=== PATIENT | female | born 1955 | race Two or more races ===

== ENCOUNTER 2020-03-02 07:53 | Outpatient (CLI) | payer BC | END 2020-03-02 23:59 | disposition home or self-care (01) | LOC: ROC 07:53 | PROVIDERS: ATTEND Radiology Radiation Oncology | DX: D32.0 Benign neoplasm of cerebral meninges (principal) | CPT/HCPCS: 99214; G0463 ==

== ENCOUNTER → 2020-10-26 | Outpatient (CLI) | payer BC, MEDICARE | END | disposition home or self-care (01) | LOC: ROC 07:16 | PROVIDERS: ATTEND Radiology Radiation Oncology | DX: Z08 Encounter for follow-up examination after completed treatment for malignant neoplasm (principal); D32.0 Benign neoplasm of cerebral meninges | CPT/HCPCS: G0463 ==

== ENCOUNTER 2020-11-15 01:49 | Inpatient (IN) | payer BC, MEDICARE ==
[~2020-11-15] VITALS: Ht 152.4 cm; Wt 73.5 kg
--- NOTE | 2020-11-15 01:59 | NUR ---
Patient BIBA for poss seizure. Per patient's , he woke up to patient having abnormally loud breathing and grinding her teeth. He then witnessed seizure activity for an unknown amount of time. Patient does not have a hx of seizures. Upon EMS arrival, patient appeared postictal and was AAOx1, GCS 9. Per , patient has a "device in her head that is to be removed," but has never had any problems. Currently, patient is alert to person and place, GCS 15. She denies pain. Patient in NAD. Respirations even and unlabored.
--- NOTE | 2020-11-15 02:10 | NUR ---
Seizure precations in place.
[2020-11-15] MEDS ORDERED: SODIUM CHLORIDE FLUSH 10ML SYR IVF ONE (02:30)
[2020-11-15] MEDS ORDERED: SODIUM CHLORIDE 0.9% 1,000ML IVBOLUS ONE (02:30)
[2020-11-15 02:38] LABS: BASOPHILS % (AUTO) 1 % (0-1); EOSINOPHILS % (AUTO) 2 % (1-7); LYMPHOCYTES % (AUTO) 24 % (22-44); MD NO; MEAN CORPUSCULAR HEMOGLOBIN 32.4 pg (27.0-34.8); MEAN CORPUSCULAR HGB CONC 34.4 g/dL (32.4-35.8); MEAN PLATELET VOLUME 8.7 fL (7.4-10.4); MONOCYTES % (AUTO) 11 % (2-9); NEUTROPHILS % (AUTO) 63 % (42-75); PLATELET COUNT 172 x10^3/uL (130-400); RED CELL DISTRIBUTION WIDTH 13.2 % (9.6-15.2)
[2020-11-15 02:43] LABS: ALANINE AMINOTRANSFERASE 80 U/L (12-78); ALBUMIN 3.8 g/dL (3.4-5.0); ANION GAP 5 mmol/L (5-15); CALCIUM 9.4 mg/dL (8.5-10.1); CHLORIDE 109 mmol/L (98-107); CREATININE 0.88 mg/dL (0.55-1.02)
--- NOTE | 2020-11-15 02:43 | NUR ---
Patient to CT.
[2020-11-15 02:45] LABS: ALKALINE PHOSPHATASE 121 U/L (45-117); BILIRUBIN,TOTAL 0.6 mg/dL (0.2-1.0)
[2020-11-15] MEDS ORDERED: DEXAMETHASONE 4 MG/ML, 5ML ONE (03:22)
[2020-11-15] MEDS ORDERED: LEVETIRACETAM 1,000 MG in SODIUM CHLORIDE 0.9% 100 ML IV ONE (03:30)
[2020-11-15] MEDS ORDERED: DEXAMETHASONE 4 MG/ML, 1ML IVPush ONE (03:30)
[2020-11-15] MEDS ORDERED: ACETAMINOPHEN 325 MG TABLET ONE (03:54)
[2020-11-15] MEDS ORDERED: ACETAMINOPHEN 325 MG TABLET PO ONE (04:00)
[2020-11-15] MEDS ORDERED: ENALAPRILAT 1.25 MG/ML, 2ML IVPush PRN (04:30)
[2020-11-15] MEDS ORDERED: IBUPROFEN 600 MG TABLET PO PRN (04:30)
[2020-11-15] MEDS ORDERED: ONDANSETRON ODT 4 MG PO PRN (04:30)
[2020-11-15] MEDS ORDERED: POLYETHYLENE GLYCOL 17 GM PACKET PO PRN (04:30)
[2020-11-15] MEDS ORDERED: MELATONIN 5 MG TABLET PO PRN (04:30)
[2020-11-15] MEDS ORDERED: DOCUSATE 100 MG CAPSULE PO PRN (04:30)
--- NOTE | 2020-11-15 04:31 | NUR ---
PATIENT PLACED ON 2L VIA NC DUE TO PATIENT REPEATEDLY BEING FOUND AT 76-79% ON RA WHILE SHE IS RESTING WITH EYES CLOSED ON [place]. PATIENT NOW RESTING AT 95%. PATIENT APNEIC/SNORING DURING SLEEP
--- NOTE | 2020-11-15 04:50 | NUR ---
Report given to TIGRE Martinez. Patient to be transferred to room 427-2.
[2020-11-15 05:02] VITALS: BP 123/71
[2020-11-15 05:27] VITALS: BP 123/71
[2020-11-15] MEDS: ENOXAPARIN 40 MG/0.4 ML SQ SCH (06:17)
[2020-11-15 08:04] VITALS: BP 111/71
[2020-11-15] MEDS: LEVETIRACETAM 500 MG TABLET PO SCH ×2 (10:23→20:21)
[2020-11-15 12:59] VITALS: BP 113/73
[2020-11-15 13:54] LABS: MICROSCOPIC NOT IND
[2020-11-15] MEDS: ACETAMINOPHEN 325 MG TABLET PO PRN (14:23)
[2020-11-15] MEDS ORDERED: LORazepam 2 MG/ML, 1ML IVPush PRN (15:00)
[2020-11-15 19:26] VITALS: BP 96/58
[2020-11-15 22:41] LABS: AMPHETAMINE SCREEN, URINE Negative (Negative); BARBITURATE SCREEN, URINE Negative (Negative); BENZODIAZEPINE SCREEN, URINE Negative (Negative); CANNABINOID SCREEN, URINE Negative (Negative); COCAINE SCREEN, URINE Negative (Negative); METHADONE SCREEN, URINE Negative (Negative); OPIATE SCREEN, URINE Negative (Negative)
[2020-11-16 01:39] VITALS: BP 102/61
[2020-11-16] MEDS: ENOXAPARIN 40 MG/0.4 ML SQ SCH (04:16)
[2020-11-16] MEDS ORDERED: LATA2.5D4 EACHEYE (05:20)
[2020-11-16 05:37] LABS: BASOPHILS % (AUTO) 0 % (0-1); EOSINOPHILS % (AUTO) 0 % (1-7); LYMPHOCYTES % (AUTO) 20 % (22-44); MD NO; MEAN CORPUSCULAR HGB CONC 34.1 g/dL (32.4-35.8); MEAN PLATELET VOLUME 8.9 fL (7.4-10.4); MONOCYTES % (AUTO) 10 % (2-9); NEUTROPHILS % (AUTO) 70 % (42-75); PLATELET COUNT 164 x10^3/uL (130-400); RED BLOOD COUNT 4.17 x10^6/uL (3.82-5.3); RED CELL DISTRIBUTION WIDTH 13.2 % (9.6-15.2)
[2020-11-16 05:55] LABS: CHLORIDE 116 mmol/L (98-107)
[2020-11-16 05:59] LABS: ANION GAP 5 mmol/L (5-15); CALCIUM 9.5 mg/dL (8.5-10.1); CREATININE 0.72 mg/dL (0.55-1.02)
[2020-11-16 07:30] VITALS: BP 99/63
[2020-11-16] MEDS: LEVETIRACETAM 500 MG TABLET PO SCH (08:57)
[2020-11-16] MEDS ORDERED: ESCITALOPRAM 10MG TABLET PO SCH (09:00)
[2020-11-16] MEDS ORDERED: LEVE500T53 PO (10:11)
[2020-11-16] MEDS: ACETAMINOPHEN 325 MG TABLET PO PRN (12:31)
[2020-11-16 15:42] VITALS: BP 137/79
[2020-11-16] MEDS ORDERED: PREGABALIN 150 MG CAPSULE PO SCH (21:00)
== END 2020-11-16 17:36 | disposition home or self-care (01) | DRG 100 ==
LOC: ED 02:02 → EDIP 04:24 → 4WST 04:56
PROVIDERS: ADMIT Student in an Organized Health Care Education/Training Program; ATTEND Student in an Organized Health Care Education/Training Program
DX: R56.9 Unspecified convulsions (principal); G93.6 Cerebral edema; E78.00 Pure hypercholesterolemia, unspecified; E78.5 Hyperlipidemia, unspecified; E66.9 Obesity, unspecified; F32.9 Major depressive disorder, single episode, unspecified; R74.01 Elevation of levels of liver transaminase levels; Z86.011 Personal history of benign neoplasm of the brain; Z92.3 Personal history of irradiation; Z79.899 Other long term (current) drug therapy; Z68.31 Body mass index [BMI] 31.0-31.9, adult
CPT/HCPCS: 36415; 70450; 70553; 71045; 80048; 80053; 80074; 80307; 80320; 81003; 83735; 85025; 93005; 96374; 96375; 99285; G0378; J1100; J1650; J1953; G0480; J7030

== ENCOUNTER 2020-12-06 21:37 | Emergency (ER) | payer BC, MEDICARE ==
[~2020-12-06] VITALS: Ht 152.4 cm; Wt 70.0 kg
[~2020-12-06 21:37] MED LIST: LATA2.5D4 EACHEYE; LEVE500T53 PO
--- NOTE | 2020-12-06 21:53 | NUR ---
Airway patent, small laceration on tongue. Pt alert, can state name but cannot state her birthday, cannot state the date or where she is.
--- NOTE | 2020-12-06 21:54 | NUR ---
Pt arrives via [facility] from home. Had witnessed seizure that lasted 4-5 min., described as tonic-clonic activity. This is the second seizure pt has ever had. First seizure was three weeks ago and pt was put on kepra, did not take kepra today. Pt also has hx of a brain tumor and is supposed to have surgery for it next week. Hooked up to monitor, EKG done, IV in place, seizure pads in place. Pt fell onto kitchen floor when she had seizure and has bump on right side of her head. Ice applied. Will CT scan head.
--- NOTE | 2020-12-06 21:58 | NUR ---
Requested caren reynoso from pharmacy.
[2020-12-06] MEDS ORDERED: LEVETIRACETAM 1,000 MG in SODIUM CHLORIDE 0.9% 100 ML IV ONE (22:00)
[2020-12-06] MEDS ORDERED: SODIUM CHLORIDE FLUSH 10ML SYR IVF ONE (22:00)
--- NOTE | 2020-12-06 22:03 | NUR ---
Pt to CT
--- NOTE | 2020-12-06 22:28 | NUR ---
Chelo infusing per [facility]MAR. Lab at bedside. Pt's at bedside. Seizure pads in place, hooked up to monitor.
[2020-12-06 22:36] LABS: BASOPHILS % (AUTO) 1 % (0-1); EOSINOPHILS % (AUTO) 2 % (1-7); LYMPHOCYTES % (AUTO) 19 % (22-44); MEAN CORPUSCULAR HEMOGLOBIN 32.4 pg (27.0-34.8); MEAN CORPUSCULAR HGB CONC 34.3 g/dL (32.4-35.8); MEAN PLATELET VOLUME 9.1 fL (7.4-10.4); MONOCYTES % (AUTO) 10 % (2-9); NEUTROPHILS % (AUTO) 68 % (42-75); PLATELET COUNT 160 x10^3/uL (130-400); RED BLOOD COUNT 4.25 x10^6/uL (3.82-5.3); RED CELL DISTRIBUTION WIDTH 13.2 % (9.6-15.2)
[2020-12-06 22:37] LABS: MD NO
[2020-12-06 22:42] LABS: ALBUMIN 3.5 g/dL (3.4-5.0); ANION GAP 4 mmol/L (5-15); CALCIUM 8.9 mg/dL (8.5-10.1); CHLORIDE 107 mmol/L (98-107); CREATININE 0.71 mg/dL (0.55-1.02)
--- NOTE | 2020-12-06 22:44 | NUR ---
Chasidyra infusion complete.
--- NOTE | 2020-12-06 22:57 | NUR ---
Covering primary nurse for break, pt resting on monitor, seizure pads in place, ice on forehead. VSS. Friend at bedside. Will continue to monitor.
--- NOTE | 2020-12-06 23:21 | NUR ---
Pt requested to walk to br with , pt with unsteady wobbly gait. Brought in BSC, with pt.
--- NOTE | 2020-12-06 23:28 | NUR ---
Pt placed back in [facility] using BSC. Back on monitor.
--- NOTE | 2020-12-06 23:51 | NUR ---
Consulting neurology and continuing to monitor pt. Pt still oriented only to self and situation. Does not know where she is or what the date is. at bedside.
[2020-12-07 00:25] VITALS: BP 109/73
--- NOTE | 2020-12-07 00:26 | NUR ---
IV removed, catheter intact, hemostasis achieved, dressing applied. Pt and pt's agree with and understand discharge plan and instructions.
[2020-12-09] MEDS ORDERED: ESCI20TA8 PO (09:33)
[2020-12-09] MEDS ORDERED: GINK120T3 PO (09:33)
[2020-12-09] MEDS ORDERED: B CO1CAP5 PO (09:33)
[2020-12-09] MEDS ORDERED: ACET-1600 PO (09:33)
[2020-12-09] MEDS ORDERED: PREG150C PO (09:33)
[2020-12-09] MEDS ORDERED: ROSU5TAB PO (09:33)
[2020-12-09] MEDS ORDERED: CHOL10003 PO (09:33)
[2020-12-09] MEDS ORDERED: PROP15DR EACHEYE (09:33)
[2020-12-09] MEDS ORDERED: OMEG1CAP39 PO (09:33)
[2020-12-09] MEDS ORDERED: MULT-717 PO (09:33)
[2020-12-09] MEDS ORDERED: LEVE750T8 PO (09:33)
== END 2020-12-07 00:32 | disposition home or self-care (01) ==
LOC: ED 22:07
DX: I67.89 Other cerebrovascular disease (principal); R56.9 Unspecified convulsions; R51.9 Headache, unspecified; E78.00 Pure hypercholesterolemia, unspecified
CPT/HCPCS: 36415; 70450; 80048; 82040; 85025; 93005; 96365; 99285; J1953

== ENCOUNTER → 2020-12-09 | Outpatient (CLI) | payer BC, MEDICARE ==
[~2020-12-09] MED LIST changes: +ACET-1600 PO; +B CO1CAP5 PO; +CHOL10003 PO; +ESCI20TA8 PO; +GINK120T3 PO; +LEVE750T8 PO; +MULT-717 PO; +OMEG1CAP39 PO; +PREG150C PO; +PROP15DR EACHEYE; +ROSU5TAB PO
== END | disposition home or self-care (01) ==
LOC: STAR 08:36
PROVIDERS: ATTEND Neurological Surgery
DX: Z20.822 Contact with and (suspected) exposure to COVID-19 (principal); D32.0 Benign neoplasm of cerebral meninges
CPT/HCPCS: U0003

== ENCOUNTER 2020-12-15 05:29 | Inpatient (IN) | payer BC, MEDICARE ==
[~2020-12-15] VITALS: Ht 152.4 cm; Wt 65.5 kg
[2020-12-15] MEDS ORDERED: CHLORHEXIDINE 15 ML UDC MM ONE (06:30)
[2020-12-15] MEDS ORDERED: LACTATED RINGERS 1,000 ML IV SCH (06:30)
[2020-12-15] MEDS ORDERED: LIDOCAINE-MPF 1%, 2ML INFIL ONE (06:30)
[2020-12-15] MEDS ORDERED: BUPIVACAINE/PF 0.5% ONE (06:42)
[2020-12-15] MEDS ORDERED: BACITRACIN 50,000 UNIT ONE (06:43)
[2020-12-15] MEDS ORDERED: BACITRACIN OINT 500U/GM, 15 GM ONE (06:43)
[2020-12-15] MEDS ORDERED: MANNITOL PMX 20% 500 ML ONE (06:43)
[2020-12-15] MEDS ORDERED: EPINEPHRINE 1 MG/ML, 1ML ONE (06:43)
[2020-12-15] MEDS ORDERED: PROPOFOL 10 MG/ML, 20ML ONE (07:17)
[2020-12-15] MEDS ORDERED: MIDAZOLAM 1 MG/ML, 2ML ONE ×2 (07:17→12:48)
[2020-12-15] MEDS ORDERED: FENTANYL PF 250 MCG/5ML ONE (07:17)
[2020-12-15] MEDS ORDERED: ROCURONIUM 10MG/ML,5ML ONE (07:18)
[2020-12-15] MEDS ORDERED: DEXAMETHASONE 4 MG/ML, 1ML ONE (07:18)
[2020-12-15] MEDS ORDERED: ONDANSETRON 2MG/ML, 2ML ONE (07:18)
[2020-12-15] MEDS ORDERED: CEFAZOLIN 1,000 MG ONE (07:18)
[2020-12-15] MEDS ORDERED: LIDOCAINE-MPF 2% ,5ML ONE (07:18)
[2020-12-15] MEDS ORDERED: MEPERIDINE/PF 25MG/0.5ML IVPush PRN (08:00)
[2020-12-15] MEDS ORDERED: LABETALOL 5MG/ML, 20ML IV PRN ×2 (08:00→13:00)
[2020-12-15] MEDS ORDERED: ONDANSETRON 2MG/ML, 2ML IVPush PRN (08:00)
[2020-12-15] MEDS ORDERED: DIPHENHYDRAMINE 50 MG/ML, 1ML IVPush PRN (08:00)
[2020-12-15] MEDS ORDERED: FENTANYL PF 100 MCG/2ML IV PRN (08:00)
[2020-12-15] MEDS ORDERED: DIAZEPAM 5 MG/ML, 2ML IVPush PRN (08:00)
[2020-12-15] MEDS ORDERED: OXYcodone 5 MG/5 ML ORAL.SOL UDC PO PRN (08:00)
[2020-12-15] MEDS ORDERED: hydrALAzine 20 MG/ML, 1ML IV PRN (08:00)
[2020-12-15] MEDS ORDERED: HYDROmorphone 1 MG/ML, 1ML INJ IVPush PRN (08:00)
[2020-12-15] MEDS ORDERED: PROMETHAZINE 25 MG/ML, 1ML IVPush PRN (08:00)
[2020-12-15] MEDS ORDERED: ACETAMINOPHEN 325 MG TABLET PO PRN (08:00)
[2020-12-15] MEDS ORDERED: LEVETIRACETAM 1,000 MG in SODIUM CHLORIDE 0.9% 100 ML IV ONE (08:30)
[2020-12-15] MEDS ORDERED: THROMBIN 20,000 UNIT VIAL TP ONE (09:04)
[2020-12-15] MEDS ORDERED: morphine SULFATE 10 MG/ML, 1ML IV PRN (13:00)
[2020-12-15] MEDS ORDERED: ONDANSETRON 2MG/ML, 2ML IV PRN (13:00)
[2020-12-15] MEDS ORDERED: BISACODYL 10 MG SUPP PR PRN (13:00)
[2020-12-15] MEDS ORDERED: PROCHLORPERAZINE 5 MG/ML, 2ML IV PRN (13:30)
[2020-12-15] MEDS ORDERED: METOCLOPRAMIDE 5 MG/ML, 2ML IVPush PRN (13:30)
[2020-12-15] MEDS ORDERED: FENTANYL PF 100 MCG/2ML ONE (14:15)
[2020-12-15] MEDS: FENTANYL PF 100 MCG/2ML IV PRN ×2 (14:35→15:15)
[2020-12-15] MEDS ORDERED: DEXAMETHASONE 4 MG TABLET PO SCH (15:30)
[2020-12-15] MEDS: ACETAMINOPHEN 650 MG/20.3 ML UDC PO SCH ×2 (15:56→19:46)
[2020-12-15] MEDS: CEFAZOLIN PMX 1GM/50ML 50 ML IVPB SCH (15:56)
[2020-12-15] MEDS: DEXAMETHASONE 4 MG/ML, 1ML IVPush SCH (18:06)
[2020-12-15] MEDS ORDERED: LEVETIRACETAM 500 MG TABLET PO SCH (21:00)
[2020-12-15] MEDS: LEVETIRACETAM 1,000 MG in SODIUM CHLORIDE 0.9% 100 ML IV SCH (21:18)
[2020-12-16] MEDS: ACETAMINOPHEN 650 MG/20.3 ML UDC PO SCH ×4 (00:11→21:27)
[2020-12-16] MEDS: CEFAZOLIN PMX 1GM/50ML 50 ML IVPB SCH (00:11)
[2020-12-16] MEDS: DEXAMETHASONE 4 MG/ML, 1ML IVPush SCH ×3 (00:11→17:18)
[2020-12-16 04:33] LABS: BASOPHILS % (AUTO) 0 % (0-1); CALCIUM 7.8 mg/dL (8.5-10.1); CHLORIDE 113 mmol/L (98-107); CREATININE 0.79 mg/dL (0.55-1.02); EOSINOPHILS % (AUTO) 0 % (1-7); LYMPHOCYTES % (AUTO) 7 % (22-44); MEAN CORPUSCULAR HGB CONC 33.5 g/dL (32.4-35.8); MEAN PLATELET VOLUME 8.8 fL (7.4-10.4); MONOCYTES % (AUTO) 7 % (2-9); NEUTROPHILS % (AUTO) 86 % (42-75); PLATELET COUNT 154 x10^3/uL (130-400); RED BLOOD COUNT 3.78 x10^6/uL (3.82-5.3); RED CELL DISTRIBUTION WIDTH 13.5 % (9.6-15.2)
[2020-12-16 04:40] LABS: ANION GAP 4 mmol/L (5-15)
[2020-12-16 05:43] LABS: MD SCAN
[2020-12-16] MEDS: SENNA/DOCUSATE TABLET PO SCH (09:00)
[2020-12-16] MEDS: LEVETIRACETAM 1,000 MG in SODIUM CHLORIDE 0.9% 100 ML IV SCH (10:44)
[2020-12-16] MEDS ORDERED: SODIUM CHLORIDE 0.9% IV ONE (16:30)
[2020-12-16] MEDS ORDERED: FOSPHENYTOIN IV ONE (16:30)
[2020-12-16] MEDS: LEVETIRACETAM 1,500 MG in SODIUM CHLORIDE 0.9% 100 ML IV SCH (17:48)
[2020-12-17] MEDS: DEXAMETHASONE 4 MG/ML, 1ML IVPush SCH ×3 (00:18→16:38)
[2020-12-17] MEDS: ACETAMINOPHEN 650 MG/20.3 ML UDC PO SCH ×2 (03:30→08:08)
[2020-12-17] MEDS: LEVETIRACETAM 1,500 MG in SODIUM CHLORIDE 0.9% 100 ML IV SCH ×2 (04:19→17:50)
[2020-12-17 04:58] LABS: BASOPHILS % (AUTO) 0 % (0-1); EOSINOPHILS % (AUTO) 0 % (1-7); LYMPHOCYTES % (AUTO) 7 % (22-44); MEAN PLATELET VOLUME 9.3 fL (7.4-10.4); MONOCYTES % (AUTO) 8 % (2-9); NEUTROPHILS % (AUTO) 85 % (42-75); PLATELET COUNT 143 x10^3/uL (130-400); RED BLOOD COUNT 3.82 x10^6/uL (3.82-5.3); RED CELL DISTRIBUTION WIDTH 13.6 % (9.6-15.2)
[2020-12-17 05:02] LABS: ANION GAP 1 mmol/L (5-15); CALCIUM 8.2 mg/dL (8.5-10.1); CHLORIDE 117 mmol/L (98-107)
[2020-12-17 05:05] LABS: MD NO
[2020-12-17] MEDS: SENNA/DOCUSATE TABLET PO SCH (08:08)
[2020-12-18] MEDS: DEXAMETHASONE 4 MG/ML, 1ML IVPush SCH ×3 (00:21→16:17)
[2020-12-18] MEDS: LEVETIRACETAM 1,500 MG in SODIUM CHLORIDE 0.9% 100 ML IV SCH ×2 (04:39→16:46)
[2020-12-18] MEDS: FENTANYL PF 100 MCG/2ML IV PRN ×2 (04:40→12:02)
[2020-12-18 06:18] LABS: BASOPHILS % (AUTO) 0 % (0-1); EOSINOPHILS % (AUTO) 0 % (1-7); LYMPHOCYTES % (AUTO) 9 % (22-44); MEAN CORPUSCULAR HGB CONC 33.8 g/dL (32.4-35.8); MEAN PLATELET VOLUME 9.4 fL (7.4-10.4); MONOCYTES % (AUTO) 6 % (2-9); NEUTROPHILS % (AUTO) 85 % (42-75); PLATELET COUNT 140 x10^3/uL (130-400); RED BLOOD COUNT 3.75 x10^6/uL (3.82-5.3); RED CELL DISTRIBUTION WIDTH 13.5 % (9.6-15.2)
[2020-12-18 06:23] LABS: MD NO
[2020-12-18 06:29] LABS: ANION GAP 4 mmol/L (5-15); CALCIUM 8.7 mg/dL (8.5-10.1); CHLORIDE 122 mmol/L (98-107)
[2020-12-18 06:30] LABS: CREATININE 0.71 mg/dL (0.55-1.02)
[2020-12-18] MEDS: SENNA/DOCUSATE TABLET PO SCH (12:53)
[2020-12-18] MEDS: ESCITALOPRAM 10MG TABLET PO SCH (12:53)
[2020-12-18] MEDS: OXYcodone 5 MG/5 ML ORAL.SOL UDC PO PRN (16:18)
[2020-12-18] MEDS: ATORVASTATIN 20 MG TABLET PO SCH (21:00)
[2020-12-18] MEDS: LATANOPROST OPHTH 0.005%, 2.5ML EACHEYE SCH (21:07)
[2020-12-19] MEDS: DEXAMETHASONE 4 MG/ML, 1ML IVPush SCH ×3 (00:15→17:03)
[2020-12-19] MEDS: FENTANYL PF 100 MCG/2ML IV PRN (04:06)
[2020-12-19 04:24] LABS: BASOPHILS % (AUTO) 0 % (0-1); EOSINOPHILS % (AUTO) 0 % (1-7); LYMPHOCYTES % (AUTO) 10 % (22-44); MD NO; MEAN CORPUSCULAR HEMOGLOBIN 31.9 pg (27.0-34.8); MEAN CORPUSCULAR HGB CONC 33.7 g/dL (32.4-35.8); MEAN PLATELET VOLUME 9.1 fL (7.4-10.4); MONOCYTES % (AUTO) 5 % (2-9); NEUTROPHILS % (AUTO) 85 % (42-75); PLATELET COUNT 140 x10^3/uL (130-400); RED BLOOD COUNT 3.97 x10^6/uL (3.82-5.3); RED CELL DISTRIBUTION WIDTH 13.6 % (9.6-15.2)
[2020-12-19] MEDS: LEVETIRACETAM 1,500 MG in SODIUM CHLORIDE 0.9% 100 ML IV SCH ×2 (04:32→17:03)
[2020-12-19 04:35] LABS: CALCIUM 8.6 mg/dL (8.5-10.1); CHLORIDE 129 mmol/L (98-107); CREATININE 0.86 mg/dL (0.55-1.02)
[2020-12-19 04:42] LABS: ANION GAP 4 mmol/L (5-15)
[2020-12-19] MEDS: ESCITALOPRAM 10MG TABLET PO SCH (09:00)
[2020-12-19] MEDS: SENNA/DOCUSATE TABLET PO SCH (09:00)
[2020-12-19] MEDS: OXYcodone 5 MG/5 ML ORAL.SOL UDC PO PRN (14:52)
[2020-12-19 16:17] LABS: ANION GAP 6 mmol/L (5-15); CALCIUM 8.1 mg/dL (8.5-10.1); CHLORIDE 124 mmol/L (98-107)
[2020-12-19] MEDS: ATORVASTATIN 20 MG TABLET PO SCH (20:33)
[2020-12-19] MEDS: LATANOPROST OPHTH 0.005%, 2.5ML EACHEYE SCH (20:33)
[2020-12-20] MEDS: DEXAMETHASONE 4 MG/ML, 1ML IVPush SCH ×3 (00:10→15:55)
[2020-12-20 04:22] LABS: BASOPHILS % (AUTO) 1 % (0-1); EOSINOPHILS % (AUTO) 0 % (1-7); LYMPHOCYTES % (AUTO) 9 % (22-44); MEAN CORPUSCULAR HEMOGLOBIN 31.9 pg (27.0-34.8); MEAN PLATELET VOLUME 9.3 fL (7.4-10.4); MONOCYTES % (AUTO) 4 % (2-9); NEUTROPHILS % (AUTO) 87 % (42-75); PLATELET COUNT 134 x10^3/uL (130-400); RED BLOOD COUNT 3.93 x10^6/uL (3.82-5.3)
[2020-12-20] MEDS: LEVETIRACETAM 1,500 MG in SODIUM CHLORIDE 0.9% 100 ML IV SCH ×2 (04:30→16:53)
[2020-12-20 04:33] LABS: ALANINE AMINOTRANSFERASE 119 U/L (12-78); ALBUMIN 3.1 g/dL (3.4-5.0); ANION GAP 1 mmol/L (5-15); CALCIUM 8.4 mg/dL (8.5-10.1); CHLORIDE 124 mmol/L (98-107); CREATININE 0.69 mg/dL (0.55-1.02)
[2020-12-20 04:35] LABS: ALKALINE PHOSPHATASE 70 U/L (45-117); TOTAL PROTEIN 6.5 g/dL (6.4-8.2)
[2020-12-20 04:37] LABS: MD SCAN
[2020-12-20] MEDS: SENNA/DOCUSATE TABLET PO SCH (08:42)
[2020-12-20] MEDS: ESCITALOPRAM 10MG TABLET PO SCH (08:42)
[2020-12-20] MEDS: POTASSIUM CHLORIDE 20 MEQ TAB.ER.PRT PO SCH ×3 (08:42→15:55)
[2020-12-20 16:00] VITALS: BP 102/56
[2020-12-20] MEDS: ATORVASTATIN 20 MG TABLET PO SCH (21:06)
[2020-12-20] MEDS: LATANOPROST OPHTH 0.005%, 2.5ML EACHEYE SCH (21:07)
[2020-12-20 21:55] VITALS: BP 101/65
[2020-12-20 23:07] LABS: MICROSCOPIC INDICATED
[2020-12-21] MEDS: DEXAMETHASONE 4 MG/ML, 1ML IVPush SCH ×2 (00:34→09:23)
[2020-12-21 01:31] VITALS: BP 104/60
[2020-12-21 04:54] LABS: BASOPHILS % (AUTO) 0 % (0-1); EOSINOPHILS % (AUTO) 0 % (1-7); LYMPHOCYTES % (AUTO) 7 % (22-44); MEAN CORPUSCULAR HEMOGLOBIN 31.9 pg (27.0-34.8); MEAN CORPUSCULAR HGB CONC 33.4 g/dL (32.4-35.8); MEAN PLATELET VOLUME 9.5 fL (7.4-10.4); MONOCYTES % (AUTO) 4 % (2-9); NEUTROPHILS % (AUTO) 89 % (42-75); PLATELET COUNT 135 x10^3/uL (130-400); RED BLOOD COUNT 3.74 x10^6/uL (3.82-5.3); RED CELL DISTRIBUTION WIDTH 13.9 % (9.6-15.2)
[2020-12-21 05:04] LABS: ALANINE AMINOTRANSFERASE 117 U/L (12-78); ALBUMIN 3.1 g/dL (3.4-5.0); ANION GAP 3 mmol/L (5-15); BILIRUBIN, DIRECT 0.2 mg/dL (0.1-0.2); CALCIUM 8.2 mg/dL (8.5-10.1); CHLORIDE 116 mmol/L (98-107); CREATININE 0.64 mg/dL (0.55-1.02)
[2020-12-21] MEDS: LEVETIRACETAM 1,500 MG in SODIUM CHLORIDE 0.9% 100 ML IV SCH (05:04)
[2020-12-21 05:06] LABS: ALKALINE PHOSPHATASE 73 U/L (45-117); BILIRUBIN,INDIRECT 0.6 mg/dL (0.0-2.0); BILIRUBIN,TOTAL 0.8 mg/dL (0.2-1.0); TOTAL PROTEIN 6.3 g/dL (6.4-8.2)
[2020-12-21 05:07] LABS: MD NO
[2020-12-21 06:39] VITALS: BP 107/65
[2020-12-21] MEDS: SENNA/DOCUSATE TABLET PO SCH (09:22)
[2020-12-21] MEDS: ESCITALOPRAM 10MG TABLET PO SCH (09:23)
[2020-12-21] MEDS: LEVETIRACETAM 500 MG TABLET PO SCH ×2 (09:28→20:57)
[2020-12-21] MEDS: CEFTRIAXONE PMX 2GM/50ML 50 ML IVPB SCH (10:50)
[2020-12-21 13:06] VITALS: BP 115/79
[2020-12-21] MEDS: DEXAMETHASONE 4 MG TABLET PO SCH ×2 (13:58→22:17)
[2020-12-21 18:38] VITALS: BP 100/64
[2020-12-21] MEDS: ATORVASTATIN 20 MG TABLET PO SCH (20:57)
[2020-12-21] MEDS: LATANOPROST OPHTH 0.005%, 2.5ML EACHEYE SCH (20:57)
[2020-12-22 01:19] VITALS: BP 106/69
[2020-12-22 06:02] LABS: BASOPHILS % (AUTO) 0 % (0-1); EOSINOPHILS % (AUTO) 0 % (1-7); LYMPHOCYTES % (AUTO) 10 % (22-44); MEAN CORPUSCULAR HEMOGLOBIN 31.9 pg (27.0-34.8); MEAN CORPUSCULAR HGB CONC 33.2 g/dL (32.4-35.8); MONOCYTES % (AUTO) 5 % (2-9); NEUTROPHILS % (AUTO) 85 % (42-75); PLATELET COUNT 135 x10^3/uL (130-400); RED BLOOD COUNT 3.85 x10^6/uL (3.82-5.3); RED CELL DISTRIBUTION WIDTH 13.6 % (9.6-15.2)
[2020-12-22 06:03] LABS: MD NO
[2020-12-22] MEDS: DEXAMETHASONE 4 MG TABLET PO SCH ×3 (06:07→22:14)
[2020-12-22 06:14] LABS: CHLORIDE 113 mmol/L (98-107)
[2020-12-22 06:18] LABS: ANION GAP 3 mmol/L (5-15); CALCIUM 8.4 mg/dL (8.5-10.1); CREATININE 0.61 mg/dL (0.55-1.02)
[2020-12-22 07:14] VITALS: BP 124/73
[2020-12-22] MEDS: ESCITALOPRAM 10MG TABLET PO SCH (08:47)
[2020-12-22] MEDS: LEVETIRACETAM 500 MG TABLET PO SCH ×2 (08:47→22:14)
[2020-12-22] MEDS: SENNA/DOCUSATE TABLET PO SCH (08:48)
[2020-12-22] MEDS: CEFTRIAXONE PMX 2GM/50ML 50 ML IVPB SCH (10:13)
[2020-12-22 13:50] VITALS: BP 105/67
[2020-12-22 18:43] VITALS: BP 116/64
[2020-12-22] MEDS: LATANOPROST OPHTH 0.005%, 2.5ML EACHEYE SCH (22:12)
[2020-12-22] MEDS: ATORVASTATIN 20 MG TABLET PO SCH (22:14)
[2020-12-23 01:02] VITALS: BP 119/75
[2020-12-23 05:39] LABS: ANION GAP 6 mmol/L (5-15); CALCIUM 8.2 mg/dL (8.5-10.1); CHLORIDE 108 mmol/L (98-107); CREATININE 0.58 mg/dL (0.55-1.02)
[2020-12-23 06:13] LABS: BASOPHILS % (AUTO) 1 % (0-1); EOSINOPHILS % (AUTO) 0 % (1-7); LYMPHOCYTES % (AUTO) 9 % (22-44); MEAN CORPUSCULAR HEMOGLOBIN 31.8 pg (27.0-34.8); MEAN CORPUSCULAR HGB CONC 33.2 g/dL (32.4-35.8); MEAN PLATELET VOLUME 10.1 fL (7.4-10.4); MONOCYTES % (AUTO) 4 % (2-9); NEUTROPHILS % (AUTO) 87 % (42-75); PLATELET COUNT 131 x10^3/uL (130-400); RED BLOOD COUNT 4.02 x10^6/uL (3.82-5.3); RED CELL DISTRIBUTION WIDTH 13.9 % (9.6-15.2)
[2020-12-23 06:28] LABS: MD NO
[2020-12-23] MEDS: DEXAMETHASONE 4 MG TABLET PO SCH ×3 (06:39→21:45)
[2020-12-23 07:00] VITALS: BP 117/72
[2020-12-23] MEDS: SENNA/DOCUSATE TABLET PO SCH (08:09)
[2020-12-23] MEDS: ESCITALOPRAM 10MG TABLET PO SCH (08:09)
[2020-12-23] MEDS: LEVETIRACETAM 500 MG TABLET PO SCH ×2 (08:09→21:45)
[2020-12-23] MEDS: CEFTRIAXONE PMX 2GM/50ML 50 ML IVPB SCH (10:32)
[2020-12-23 12:35] VITALS: BP 114/72
[2020-12-23] MEDS: LEVOFLOXACIN 250 MG TABLET PO SCH (12:46)
[2020-12-23 18:42] VITALS: BP 112/71
[2020-12-23] MEDS: LATANOPROST OPHTH 0.005%, 2.5ML EACHEYE SCH (21:44)
[2020-12-23] MEDS: ATORVASTATIN 20 MG TABLET PO SCH (21:45)
[2020-12-24 01:00] VITALS: BP 109/65
[2020-12-24 04:50] LABS: BASOPHILS % (AUTO) 0 % (0-1); EOSINOPHILS % (AUTO) 0 % (1-7); LYMPHOCYTES % (AUTO) 5 % (22-44); MEAN CORPUSCULAR HEMOGLOBIN 32.4 pg (27.0-34.8); MEAN CORPUSCULAR HGB CONC 33.8 g/dL (32.4-35.8); MONOCYTES % (AUTO) 5 % (2-9); NEUTROPHILS % (AUTO) 90 % (42-75); PLATELET COUNT 134 x10^3/uL (130-400); RED BLOOD COUNT 3.92 x10^6/uL (3.82-5.3); RED CELL DISTRIBUTION WIDTH 13.8 % (9.6-15.2)
[2020-12-24 04:53] LABS: MD NO
[2020-12-24 04:59] LABS: ANION GAP 3 mmol/L (5-15); CALCIUM 8.6 mg/dL (8.5-10.1); CHLORIDE 107 mmol/L (98-107); CREATININE 0.72 mg/dL (0.55-1.02)
[2020-12-24] MEDS: DEXAMETHASONE 4 MG TABLET PO SCH ×3 (05:44→21:16)
[2020-12-24 07:16] VITALS: BP 100/66
[2020-12-24] MEDS: ESCITALOPRAM 10MG TABLET PO SCH (09:07)
[2020-12-24] MEDS: SENNA/DOCUSATE TABLET PO SCH (09:07)
[2020-12-24] MEDS: LEVETIRACETAM 500 MG TABLET PO SCH ×2 (09:08→21:16)
[2020-12-24 12:30] VITALS: BP 107/59
[2020-12-24] MEDS: LEVOFLOXACIN 250 MG TABLET PO SCH (13:28)
[2020-12-24] MEDS: MAGNESIUM HYDROXIDE 8%, 30ML UDC PO PRN (13:29)
[2020-12-24 20:22] VITALS: BP 109/62
[2020-12-24] MEDS: LATANOPROST OPHTH 0.005%, 2.5ML EACHEYE SCH (21:16)
[2020-12-24] MEDS: ATORVASTATIN 20 MG TABLET PO SCH (21:16)
[2020-12-25 02:30] VITALS: BP 122/72
[2020-12-25 05:11] LABS: BASOPHILS % (AUTO) 0 % (0-1); EOSINOPHILS % (AUTO) 0 % (1-7); LYMPHOCYTES % (AUTO) 6 % (22-44); MEAN CORPUSCULAR HEMOGLOBIN 31.9 pg (27.0-34.8); MEAN CORPUSCULAR HGB CONC 33.3 g/dL (32.4-35.8); MEAN PLATELET VOLUME 8.9 fL (7.4-10.4); MONOCYTES % (AUTO) 4 % (2-9); NEUTROPHILS % (AUTO) 90 % (42-75); PLATELET COUNT 129 x10^3/uL (130-400); RED BLOOD COUNT 4.18 x10^6/uL (3.82-5.3); RED CELL DISTRIBUTION WIDTH 14.1 % (9.6-15.2)
[2020-12-25 05:16] LABS: ANION GAP 2 mmol/L (5-15); CALCIUM 8.7 mg/dL (8.5-10.1); CHLORIDE 108 mmol/L (98-107); CREATININE 0.63 mg/dL (0.55-1.02)
[2020-12-25 05:34] LABS: MD NO
[2020-12-25] MEDS: DEXAMETHASONE 4 MG TABLET PO SCH ×3 (05:41→22:07)
[2020-12-25 09:13] VITALS: BP 106/74
[2020-12-25] MEDS: ESCITALOPRAM 10MG TABLET PO SCH (09:28)
[2020-12-25] MEDS: SENNA/DOCUSATE TABLET PO SCH (09:28)
[2020-12-25] MEDS: LEVETIRACETAM 500 MG TABLET PO SCH ×2 (09:28→22:07)
[2020-12-25] MEDS: LEVOFLOXACIN 250 MG TABLET PO SCH (13:12)
[2020-12-25 15:33] VITALS: BP 101/61
[2020-12-25 19:31] VITALS: BP 91/96
[2020-12-25] MEDS: LATANOPROST OPHTH 0.005%, 2.5ML EACHEYE SCH (22:08)
[2020-12-25] MEDS: ATORVASTATIN 20 MG TABLET PO SCH (22:08)
[2020-12-26 02:00] VITALS: BP 98/60
[2020-12-26 06:35] LABS: BASOPHILS % (AUTO) 0 % (0-1); EOSINOPHILS % (AUTO) 0 % (1-7); LYMPHOCYTES % (AUTO) 9 % (22-44); MEAN CORPUSCULAR HGB CONC 33.6 g/dL (32.4-35.8); MEAN PLATELET VOLUME 9.2 fL (7.4-10.4); MONOCYTES % (AUTO) 6 % (2-9); NEUTROPHILS % (AUTO) 85 % (42-75); PLATELET COUNT 139 x10^3/uL (130-400); RED BLOOD COUNT 3.91 x10^6/uL (3.82-5.3); RED CELL DISTRIBUTION WIDTH 14.3 % (9.6-15.2)
[2020-12-26 06:37] LABS: MD NO
[2020-12-26] MEDS: DEXAMETHASONE 4 MG TABLET PO SCH ×3 (06:39→21:18)
[2020-12-26 06:41] VITALS: BP 104/68
[2020-12-26 06:46] LABS: ALANINE AMINOTRANSFERASE 154 U/L (12-78); ANION GAP 4 mmol/L (5-15); CALCIUM 8.6 mg/dL (8.5-10.1); CHLORIDE 110 mmol/L (98-107); CREATININE 0.64 mg/dL (0.55-1.02)
[2020-12-26 06:48] LABS: ALKALINE PHOSPHATASE 101 U/L (45-117); BILIRUBIN,TOTAL 0.5 mg/dL (0.2-1.0)
[2020-12-26] MEDS: SENNA/DOCUSATE TABLET PO SCH (08:55)
[2020-12-26] MEDS: ESCITALOPRAM 10MG TABLET PO SCH (08:56)
[2020-12-26] MEDS: LEVETIRACETAM 500 MG TABLET PO SCH ×2 (08:56→21:18)
[2020-12-26 13:44] VITALS: BP 101/62
[2020-12-26 19:58] VITALS: BP 97/58
[2020-12-26] MEDS: LATANOPROST OPHTH 0.005%, 2.5ML EACHEYE SCH (21:18)
[2020-12-26] MEDS: ATORVASTATIN 20 MG TABLET PO SCH (21:18)
[2020-12-27 02:00] VITALS: BP 104/63
[2020-12-27] MEDS: DEXAMETHASONE 4 MG TABLET PO SCH ×2 (05:17→20:58)
[2020-12-27 07:09] VITALS: BP 106/78
[2020-12-27] MEDS: LEVETIRACETAM 500 MG TABLET PO SCH ×2 (08:21→20:59)
[2020-12-27] MEDS: SENNA/DOCUSATE TABLET PO SCH (08:21)
[2020-12-27] MEDS: ESCITALOPRAM 10MG TABLET PO SCH (08:21)
[2020-12-27 12:34] VITALS: BP 104/65
[2020-12-27 19:57] VITALS: BP 95/55
[2020-12-27] MEDS: LATANOPROST OPHTH 0.005%, 2.5ML EACHEYE SCH (20:58)
[2020-12-27] MEDS: ATORVASTATIN 20 MG TABLET PO SCH (20:59)
[2020-12-28 01:26] VITALS: BP 105/70
[2020-12-28 06:08] VITALS: BP 98/62
[2020-12-28] MEDS: LEVETIRACETAM 500 MG TABLET PO SCH ×2 (08:21→21:31)
[2020-12-28] MEDS: MAGNESIUM HYDROXIDE 8%, 30ML UDC PO PRN (08:22)
[2020-12-28] MEDS: ESCITALOPRAM 10MG TABLET PO SCH (08:22)
[2020-12-28] MEDS: DEXAMETHASONE 4 MG TABLET PO SCH ×2 (08:22→21:32)
[2020-12-28] MEDS: SENNA/DOCUSATE TABLET PO SCH (08:22)
[2020-12-28 11:02] VITALS: BP 105/71
--- NOTE | 2020-12-28 14:53 | NUR ---
Posted activity sheet in room with instructions for nursing staff to also assist patient to edge of bed daily. Addendum: 12/28/20 at 1453 by Ajith Rosa PT Amended: Links added.
[2020-12-28 15:00] VITALS: BP 98/82
[2020-12-28 19:26] VITALS: BP 109/82
[2020-12-28] MEDS: ATORVASTATIN 20 MG TABLET PO SCH (21:30)
[2020-12-28] MEDS: LATANOPROST OPHTH 0.005%, 2.5ML EACHEYE SCH (21:57)
[2020-12-29 00:50] VITALS: BP 99/63
[2020-12-29] MEDS: ENOXAPARIN 40 MG/0.4 ML SQ SCH (06:28)
[2020-12-29 06:56] VITALS: BP 99/65
[2020-12-29] MEDS: ESCITALOPRAM 10MG TABLET PO SCH (08:43)
[2020-12-29] MEDS: SENNA/DOCUSATE TABLET PO SCH (08:43)
[2020-12-29] MEDS: LEVETIRACETAM 500 MG TABLET PO SCH ×2 (08:43→21:59)
[2020-12-29] MEDS: DEXAMETHASONE 4 MG TABLET PO SCH (08:44)
[2020-12-29 12:46] VITALS: BP 93/67
[2020-12-29] MEDS: ACETAMINOPHEN 650 MG/20.3 ML UDC PO PRN (13:41)
[2020-12-29 19:49] VITALS: BP 101/61
[2020-12-29] MEDS: LATANOPROST OPHTH 0.005%, 2.5ML EACHEYE SCH (21:59)
[2020-12-29] MEDS: ATORVASTATIN 20 MG TABLET PO SCH (22:08)
[2020-12-29 22:12] VITALS: BP 97/58
[2020-12-30 02:20] VITALS: BP 109/68
[2020-12-30 06:20] LABS: CREATININE 0.59 mg/dL (0.55-1.02)
[2020-12-30] MEDS: ENOXAPARIN 40 MG/0.4 ML SQ SCH (06:41)
[2020-12-30 07:22] VITALS: BP 105/69
[2020-12-30] MEDS: SENNA/DOCUSATE TABLET PO SCH (08:48)
[2020-12-30] MEDS: ESCITALOPRAM 10MG TABLET PO SCH (08:49)
[2020-12-30] MEDS: LEVETIRACETAM 500 MG TABLET PO SCH ×2 (08:49→20:29)
[2020-12-30] MEDS: DEXAMETHASONE 4 MG TABLET PO SCH (08:49)
[2020-12-30 13:05] VITALS: BP 111/64
[2020-12-30 19:46] VITALS: BP 114/51
[2020-12-30 19:51] LABS: BASOPHILS % (AUTO) 0 % (0-1); EOSINOPHILS % (AUTO) 1 % (1-7); LYMPHOCYTES % (AUTO) 15 % (22-44); MEAN CORPUSCULAR HEMOGLOBIN 32.1 pg (27.0-34.8); MEAN CORPUSCULAR HGB CONC 33.5 g/dL (32.4-35.8); MEAN PLATELET VOLUME 8.4 fL (7.4-10.4); MONOCYTES % (AUTO) 5 % (2-9); NEUTROPHILS % (AUTO) 79 % (42-75); PLATELET COUNT 117 x10^3/uL (130-400); RED BLOOD COUNT 3.95 x10^6/uL (3.82-5.3); RED CELL DISTRIBUTION WIDTH 15.4 % (9.6-15.2)
[2020-12-30 19:53] LABS: MD NO
[2020-12-30 20:03] LABS: ALANINE AMINOTRANSFERASE 118 U/L (12-78); ALBUMIN 2.9 g/dL (3.4-5.0); CALCIUM 8.3 mg/dL (8.5-10.1); CHLORIDE 107 mmol/L (98-107); CREATININE 0.53 mg/dL (0.55-1.02)
[2020-12-30 20:05] LABS: ALKALINE PHOSPHATASE 90 U/L (45-117); BILIRUBIN,TOTAL 0.9 mg/dL (0.2-1.0)
[2020-12-30 20:21] LABS: ANION GAP 6 mmol/L (5-15)
[2020-12-30] MEDS: ATORVASTATIN 20 MG TABLET PO SCH (20:29)
[2020-12-30] MEDS: LATANOPROST OPHTH 0.005%, 2.5ML EACHEYE SCH (21:00)
[2020-12-31 02:46] VITALS: BP 134/70
[2020-12-31] MEDS: ENOXAPARIN 40 MG/0.4 ML SQ SCH (05:31)
[2020-12-31 08:43] VITALS: BP 152/80
[2020-12-31] MEDS: ESCITALOPRAM 10MG TABLET PO SCH (09:00)
[2020-12-31] MEDS: DEXAMETHASONE 4 MG TABLET PO SCH (09:00)
[2020-12-31] MEDS: LEVETIRACETAM 500 MG TABLET PO SCH ×3 (09:00→23:02)
[2020-12-31] MEDS: SENNA/DOCUSATE TABLET PO SCH (09:00)
[2020-12-31] MEDS ORDERED: DEXAMETHASONE 4 MG TABLET ONE (12:17)
[2020-12-31] MEDS ORDERED: LEVETIRACETAM 500 MG TABLET PO ONE (12:30)
[2020-12-31] MEDS ORDERED: DEXAMETHASONE 1 MG TABLET PO ONE (12:30)
[2020-12-31 13:34] VITALS: BP 121/64
[2020-12-31 20:35] VITALS: BP 104/62
[2020-12-31] MEDS: ACETAMINOPHEN 650 MG/20.3 ML UDC PO PRN (20:44)
[2020-12-31] MEDS: LATANOPROST OPHTH 0.005%, 2.5ML EACHEYE SCH (20:46)
[2020-12-31] MEDS: ATORVASTATIN 20 MG TABLET PO SCH ×2 (20:46→23:02)
[2021-01-01 05:17] VITALS: BP 116/64
[2021-01-01] MEDS: ENOXAPARIN 40 MG/0.4 ML SQ SCH (06:08)
[2021-01-01 08:28] VITALS: BP 103/61
[2021-01-01] MEDS: LEVETIRACETAM 500 MG TABLET PO SCH ×2 (11:21→23:04)
[2021-01-01] MEDS: ESCITALOPRAM 10MG TABLET PO SCH (11:25)
[2021-01-01] MEDS: SENNA/DOCUSATE TABLET PO SCH (11:26)
[2021-01-01 14:45] VITALS: BP 117/70
[2021-01-01 19:04] VITALS: BP 103/65
[2021-01-01] MEDS: ATORVASTATIN 20 MG TABLET PO SCH (21:00)
[2021-01-01] MEDS: LATANOPROST OPHTH 0.005%, 2.5ML EACHEYE SCH (23:06)
[2021-01-02 01:04] VITALS: BP 102/58
[2021-01-02] MEDS: ENOXAPARIN 40 MG/0.4 ML SQ SCH (06:26)
[2021-01-02 07:00] VITALS: BP 116/74
[2021-01-02] MEDS: LEVETIRACETAM 500 MG TABLET PO SCH ×2 (10:11→21:00)
[2021-01-02] MEDS: ESCITALOPRAM 10MG TABLET PO SCH (10:11)
[2021-01-02] MEDS: SENNA/DOCUSATE TABLET PO SCH (10:12)
[2021-01-02 12:28] VITALS: BP 109/69
[2021-01-02 19:27] VITALS: BP 102/59
[2021-01-02] MEDS: ATORVASTATIN 20 MG TABLET PO SCH (21:00)
[2021-01-02] MEDS: LATANOPROST OPHTH 0.005%, 2.5ML EACHEYE SCH (22:27)
[2021-01-03 00:57] VITALS: BP 106/63
[2021-01-03 05:02] LABS: CREATININE 0.56 mg/dL (0.55-1.02)
[2021-01-03] MEDS: ENOXAPARIN 40 MG/0.4 ML SQ SCH (06:08)
[2021-01-03] MEDS: ESCITALOPRAM 10MG TABLET PO SCH ×2 (09:00→09:25)
[2021-01-03] MEDS: LEVETIRACETAM 500 MG TABLET PO SCH ×3 (09:00→21:00)
[2021-01-03] MEDS: SENNA/DOCUSATE TABLET PO SCH (09:24)
[2021-01-03 09:35] VITALS: BP 100/62
[2021-01-03] MEDS: ACETAMINOPHEN 650 MG/20.3 ML UDC PO PRN (17:28)
[2021-01-03 19:38] VITALS: BP 107/70
[2021-01-03] MEDS: LATANOPROST OPHTH 0.005%, 2.5ML EACHEYE SCH (19:52)
[2021-01-03] MEDS: ATORVASTATIN 20 MG TABLET PO SCH (21:00)
[2021-01-04 02:15] VITALS: BP 98/62
[2021-01-04] MEDS: ENOXAPARIN 40 MG/0.4 ML SQ SCH (06:41)
[2021-01-04 07:49] VITALS: BP 114/75
[2021-01-04] MEDS: LEVETIRACETAM 500 MG TABLET PO SCH ×2 (08:06→20:15)
[2021-01-04] MEDS: ESCITALOPRAM 10MG TABLET PO SCH (08:10)
[2021-01-04] MEDS: SENNA/DOCUSATE TABLET PO SCH (08:12)
[2021-01-04] MEDS: ACETAMINOPHEN 650 MG/20.3 ML UDC PO PRN (10:23)
[2021-01-04 11:47] LABS: BASOPHILS % (AUTO) 0 % (0-1); EOSINOPHILS % (AUTO) 1 % (1-7); LYMPHOCYTES % (AUTO) 15 % (22-44); MEAN CORPUSCULAR HEMOGLOBIN 32.8 pg (27.0-34.8); MEAN CORPUSCULAR HGB CONC 34.1 g/dL (32.4-35.8); MEAN PLATELET VOLUME 7.9 fL (7.4-10.4); MONOCYTES % (AUTO) 10 % (2-9); NEUTROPHILS % (AUTO) 73 % (42-75); PLATELET COUNT 125 x10^3/uL (130-400); RED BLOOD COUNT 3.82 x10^6/uL (3.82-5.3); RED CELL DISTRIBUTION WIDTH 16.4 % (9.6-15.2)
[2021-01-04 11:51] LABS: MD NO
[2021-01-04 14:00] VITALS: BP 100/60
[2021-01-04 20:07] VITALS: BP 108/62
[2021-01-04] MEDS: LATANOPROST OPHTH 0.005%, 2.5ML EACHEYE SCH (20:12)
[2021-01-04] MEDS: ATORVASTATIN 20 MG TABLET PO SCH (20:15)
[2021-01-05 02:27] VITALS: BP 111/74
[2021-01-05] MEDS: ENOXAPARIN 40 MG/0.4 ML SQ SCH (05:55)
[2021-01-05] MEDS: ACETAMINOPHEN 650 MG/20.3 ML UDC PO PRN (05:55)
[2021-01-05] MEDS: LEVETIRACETAM 500 MG TABLET PO SCH ×2 (10:00→10:12)
[2021-01-05] MEDS: SENNA/DOCUSATE TABLET PO SCH (10:12)
[2021-01-05] MEDS: ESCITALOPRAM 10MG TABLET PO SCH (10:12)
[2021-01-05] MEDS: SODIUM CHLORIDE 0.9% 1,000 ML IV SCH ×2 (12:50→21:00)
[2021-01-05] MEDS: LEVETIRACETAM 1,500 MG in SODIUM CHLORIDE 0.9% 100 ML IV SCH (12:51)
[2021-01-05 19:08] VITALS: BP 99/59
[2021-01-05] MEDS: ATORVASTATIN 20 MG TABLET PO SCH (20:48)
[2021-01-05] MEDS ORDERED: PANTOPRAZOLE 40 MG IV IVPush SCH (21:00)
[2021-01-05] MEDS: LATANOPROST OPHTH 0.005%, 2.5ML EACHEYE SCH (21:00)
[2021-01-05 22:17] VITALS: BP 101/61
[2021-01-06 00:45] VITALS: BP 98/61
[2021-01-06] MEDS: LEVETIRACETAM 1,500 MG in SODIUM CHLORIDE 0.9% 100 ML IV SCH ×2 (01:05→13:06)
[2021-01-06] MEDS: SODIUM CHLORIDE 0.9% 1,000 ML IV SCH ×3 (04:30→20:18)
[2021-01-06 05:45] LABS: BASOPHILS % (AUTO) 0 % (0-1); EOSINOPHILS % (AUTO) 1 % (1-7); LYMPHOCYTES % (AUTO) 13 % (22-44); MEAN CORPUSCULAR HEMOGLOBIN 32.8 pg (27.0-34.8); MEAN CORPUSCULAR HGB CONC 33.9 g/dL (32.4-35.8); MEAN PLATELET VOLUME 7.7 fL (7.4-10.4); MONOCYTES % (AUTO) 11 % (2-9); NEUTROPHILS % (AUTO) 75 % (42-75); PLATELET COUNT 135 x10^3/uL (130-400); RED BLOOD COUNT 3.48 x10^6/uL (3.82-5.3); RED CELL DISTRIBUTION WIDTH 16.5 % (9.6-15.2)
[2021-01-06 05:54] LABS: ALBUMIN 2.4 g/dL (3.4-5.0); ANION GAP 5 mmol/L (5-15); CALCIUM 8.6 mg/dL (8.5-10.1); CHLORIDE 112 mmol/L (98-107)
[2021-01-06 05:58] LABS: ALANINE AMINOTRANSFERASE 39 U/L (12-78); ALKALINE PHOSPHATASE 72 U/L (45-117); BILIRUBIN,TOTAL 0.9 mg/dL (0.2-1.0); CREATININE 0.51 mg/dL (0.55-1.02); TOTAL PROTEIN 5.8 g/dL (6.4-8.2)
[2021-01-06 06:05] LABS: MD NO
[2021-01-06 08:00] VITALS: BP 98/60
[2021-01-06] MEDS: ESCITALOPRAM 10MG TABLET PO SCH (08:45)
[2021-01-06] MEDS: PANTOPRAZOLE 40 MG IV IVPush SCH ×2 (08:45→21:53)
[2021-01-06] MEDS: SENNA/DOCUSATE TABLET PO SCH (08:45)
[2021-01-06] MEDS: ACETAMINOPHEN 650 MG/20.3 ML UDC PO PRN (11:43)
[2021-01-06 14:01] VITALS: BP 80/47
[2021-01-06 20:40] VITALS: BP 99/57
[2021-01-06] MEDS: ATORVASTATIN 20 MG TABLET PO SCH (21:53)
[2021-01-06] MEDS: LATANOPROST OPHTH 0.005%, 2.5ML EACHEYE SCH (21:53)
[2021-01-07] MEDS: LEVETIRACETAM 1,500 MG in SODIUM CHLORIDE 0.9% 100 ML IV SCH ×2 (01:00→13:31)
[2021-01-07 01:01] VITALS: BP 109/64
[2021-01-07] MEDS: ACETAMINOPHEN 650 MG/20.3 ML UDC PO PRN (04:41)
[2021-01-07] MEDS: SODIUM CHLORIDE 0.9% 1,000 ML IV SCH ×3 (04:41→19:34)
[2021-01-07 07:04] VITALS: BP 95/46
[2021-01-07 07:11] VITALS: BP 89/49
[2021-01-07] MEDS: PANTOPRAZOLE 40 MG IV IVPush SCH ×2 (08:52→22:27)
[2021-01-07] MEDS: ESCITALOPRAM 10MG TABLET PO SCH (08:53)
[2021-01-07] MEDS: MAGNESIUM HYDROXIDE 8%, 30ML UDC PO PRN (08:53)
[2021-01-07] MEDS: SENNA/DOCUSATE TABLET PO SCH (08:53)
[2021-01-07] MEDS ORDERED: GLYCERIN ADULT SUPP PR PRN (11:30)
[2021-01-07 12:15] VITALS: BP 115/70
[2021-01-07 16:26] LABS: MICROSCOPIC AUTO
[2021-01-07 19:29] VITALS: BP 133/75
[2021-01-07] MEDS: ATORVASTATIN 20 MG TABLET PO SCH (21:00)
[2021-01-07] MEDS: LATANOPROST OPHTH 0.005%, 2.5ML EACHEYE SCH (22:29)
[2021-01-08 00:40] VITALS: BP 122/79
[2021-01-08] MEDS: LEVETIRACETAM 1,500 MG in SODIUM CHLORIDE 0.9% 100 ML IV SCH ×2 (00:57→12:03)
[2021-01-08] MEDS: SODIUM CHLORIDE 0.9% 1,000 ML IV SCH ×2 (04:02→12:09)
[2021-01-08 06:14] LABS: BASOPHILS % (AUTO) 0 % (0-1); EOSINOPHILS % (AUTO) 0 % (1-7); LYMPHOCYTES % (AUTO) 19 % (22-44); MEAN CORPUSCULAR HEMOGLOBIN 32.5 pg (27.0-34.8); MEAN PLATELET VOLUME 7.4 fL (7.4-10.4); MONOCYTES % (AUTO) 9 % (2-9); NEUTROPHILS % (AUTO) 71 % (42-75); PLATELET COUNT 171 x10^3/uL (130-400); RED BLOOD COUNT 3.31 x10^6/uL (3.82-5.3); RED CELL DISTRIBUTION WIDTH 15.9 % (9.6-15.2)
[2021-01-08 06:22] LABS: MD NO
[2021-01-08 06:26] LABS: ALBUMIN 2.3 g/dL (3.4-5.0); ANION GAP 6 mmol/L (5-15); CALCIUM 8.1 mg/dL (8.5-10.1); CHLORIDE 112 mmol/L (98-107)
[2021-01-08 06:29] LABS: ALANINE AMINOTRANSFERASE 36 U/L (12-78); ALKALINE PHOSPHATASE 86 U/L (45-117); BILIRUBIN,TOTAL 0.5 mg/dL (0.2-1.0); TOTAL PROTEIN 5.8 g/dL (6.4-8.2)
[2021-01-08] MEDS: SENNA/DOCUSATE TABLET PO SCH (08:40)
[2021-01-08] MEDS: ESCITALOPRAM 10MG TABLET PO SCH (08:40)
[2021-01-08] MEDS: PANTOPRAZOLE 40 MG IV IVPush SCH ×2 (08:40→21:08)
[2021-01-08 08:44] VITALS: BP 102/65
[2021-01-08] MEDS: ACETAMINOPHEN 650 MG/20.3 ML UDC PO PRN ×2 (09:02→18:06)
[2021-01-08] MEDS ORDERED: POTASSIUM CHLORIDE 40 MEQ in SODIUM CHLORIDE 0.9% 500 ML IV ONE (12:00)
[2021-01-08] MEDS: NITROFURANTOIN (MACROBID) 100 MG CAPSULE PO SCH ×2 (12:06→21:08)
[2021-01-08 16:01] VITALS: BP 117/77
[2021-01-08 19:10] VITALS: BP 108/62
[2021-01-08] MEDS: ATORVASTATIN 20 MG TABLET PO SCH (21:00)
[2021-01-08] MEDS: LATANOPROST OPHTH 0.005%, 2.5ML EACHEYE SCH (21:09)
[2021-01-09] MEDS: SODIUM CHLORIDE 0.9% 1,000 ML IV SCH ×3 (00:11→16:45)
[2021-01-09] MEDS: LEVETIRACETAM 1,500 MG in SODIUM CHLORIDE 0.9% 100 ML IV SCH (00:11)
[2021-01-09 00:16] VITALS: BP 124/75
[2021-01-09] MEDS: ACETAMINOPHEN 650 MG/20.3 ML UDC PO PRN ×2 (02:47→22:18)
[2021-01-09 06:27] VITALS: BP 117/68
[2021-01-09] MEDS: NITROFURANTOIN (MACROBID) 100 MG CAPSULE PO SCH ×2 (08:04→21:02)
[2021-01-09] MEDS: PANTOPRAZOLE 40 MG IV IVPush SCH (08:04)
[2021-01-09] MEDS: SENNA/DOCUSATE TABLET PO SCH (08:05)
[2021-01-09] MEDS: ESCITALOPRAM 10MG TABLET PO SCH (08:05)
[2021-01-09] MEDS ORDERED: BENZOCAINE 20% SPRAY 0.5ML TP PRN (08:30)
[2021-01-09] MEDS: LEVETIRACETAM 500 MG TABLET PO SCH ×2 (09:57→21:02)
[2021-01-09] MEDS: ENOXAPARIN 40 MG/0.4 ML SQ SCH (11:22)
[2021-01-09 12:23] VITALS: BP 118/76
[2021-01-09 19:15] VITALS: BP 115/73
[2021-01-09] MEDS: ATORVASTATIN 20 MG TABLET PO SCH (21:00)
[2021-01-09] MEDS: LATANOPROST OPHTH 0.005%, 2.5ML EACHEYE SCH (21:02)
[2021-01-09 22:47] LABS: BASOPHILS % (AUTO) 0 % (0-1); EOSINOPHILS % (AUTO) 1 % (1-7); LYMPHOCYTES % (AUTO) 24 % (22-44); MEAN CORPUSCULAR HEMOGLOBIN 32.5 pg (27.0-34.8); MEAN CORPUSCULAR HGB CONC 34.3 g/dL (32.4-35.8); MEAN PLATELET VOLUME 7.3 fL (7.4-10.4); MONOCYTES % (AUTO) 14 % (2-9); NEUTROPHILS % (AUTO) 62 % (42-75); PLATELET COUNT 202 x10^3/uL (130-400); RED BLOOD COUNT 2.95 x10^6/uL (3.82-5.3); RED CELL DISTRIBUTION WIDTH 16.4 % (9.6-15.2)
[2021-01-09 22:49] LABS: MD NO
[2021-01-10] MEDS: SODIUM CHLORIDE 0.9% 1,000 ML IV SCH ×3 (00:42→16:37)
[2021-01-10 00:50] VITALS: BP 108/64
[2021-01-10] MEDS: LEVETIRACETAM 500 MG TABLET PO SCH ×2 (08:07→20:30)
[2021-01-10] MEDS: ESCITALOPRAM 10MG TABLET PO SCH (08:07)
[2021-01-10] MEDS: NITROFURANTOIN (MACROBID) 100 MG CAPSULE PO SCH (08:08)
[2021-01-10 08:17] LABS: BASOPHILS % (AUTO) 0 % (0-1); EOSINOPHILS % (AUTO) 1 % (1-7); LYMPHOCYTES % (AUTO) 15 % (22-44); MEAN CORPUSCULAR HEMOGLOBIN 32.8 pg (27.0-34.8); MEAN CORPUSCULAR HGB CONC 34.4 g/dL (32.4-35.8); MONOCYTES % (AUTO) 13 % (2-9); NEUTROPHILS % (AUTO) 71 % (42-75); PLATELET COUNT 209 x10^3/uL (130-400); RED BLOOD COUNT 3.02 x10^6/uL (3.82-5.3); RED CELL DISTRIBUTION WIDTH 16.2 % (9.6-15.2)
[2021-01-10] MEDS: ACETAMINOPHEN 650 MG/20.3 ML UDC PO PRN ×2 (08:25→20:30)
[2021-01-10] MEDS: SENNA/DOCUSATE TABLET PO SCH (09:00)
[2021-01-10 09:11] LABS: MD SCAN
[2021-01-10 09:14] VITALS: BP 132/79
[2021-01-10] MEDS ORDERED: OMNIPAQUE 350 MG/ML, 75ML BOTTLE ONE (09:55)
[2021-01-10] MEDS ORDERED: SENNA/DOCUSATE TABLET PO PRN (11:00)
[2021-01-10] MEDS ORDERED: CIPROFLOXACIN 250 MG TABLET PO SCH (11:00)
[2021-01-10] MEDS ORDERED: CIPROFLOXACIN 500 MG TABLET ONE (11:12)
[2021-01-10] MEDS: PSYLLIUM PACKET PO SCH (11:20)
[2021-01-10] MEDS: ENOXAPARIN 40 MG/0.4 ML SQ SCH (11:20)
[2021-01-10 14:15] VITALS: BP 113/73
[2021-01-10] MEDS: CIPROFLOXACIN/PMX 400MG/200ML 200 ML IV SCH (17:33)
[2021-01-10] MEDS: SIMETHICONE DROPS 40 MG/0.6 ML BOTTLE PO PRN (17:51)
[2021-01-10 18:15] VITALS: BP 134/75
[2021-01-10] MEDS: ATORVASTATIN 20 MG TABLET PO SCH (20:30)
[2021-01-10] MEDS: LATANOPROST OPHTH 0.005%, 2.5ML EACHEYE SCH (20:30)
[2021-01-11] MEDS: SODIUM CHLORIDE 0.9% 1,000 ML IV SCH (01:10)
[2021-01-11 01:42] VITALS: BP 116/76
[2021-01-11] MEDS: CIPROFLOXACIN/PMX 400MG/200ML 200 ML IV SCH (05:29)
[2021-01-11 07:10] VITALS: BP 116/68
[2021-01-11 07:47] LABS: BASOPHILS % (AUTO) 1 % (0-1); EOSINOPHILS % (AUTO) 0 % (1-7); LYMPHOCYTES % (AUTO) 17 % (22-44); MEAN CORPUSCULAR HEMOGLOBIN 32.4 pg (27.0-34.8); MEAN CORPUSCULAR HGB CONC 34.7 g/dL (32.4-35.8); MONOCYTES % (AUTO) 12 % (2-9); NEUTROPHILS % (AUTO) 70 % (42-75); PLATELET COUNT 235 x10^3/uL (130-400); RED BLOOD COUNT 2.88 x10^6/uL (3.82-5.3); RED CELL DISTRIBUTION WIDTH 15.8 % (9.6-15.2)
[2021-01-11] MEDS: LEVETIRACETAM 500 MG TABLET PO SCH ×2 (07:58→21:00)
[2021-01-11] MEDS: ESCITALOPRAM 10MG TABLET PO SCH (07:58)
[2021-01-11] MEDS: PSYLLIUM PACKET PO SCH (07:58)
[2021-01-11] MEDS: ACETAMINOPHEN 650 MG/20.3 ML UDC PO PRN (07:58)
[2021-01-11 08:02] LABS: CHLORIDE 110 mmol/L (98-107)
[2021-01-11 08:04] LABS: ANION GAP 8 mmol/L (5-15); CALCIUM 7.9 mg/dL (8.5-10.1); CREATININE 0.41 mg/dL (0.55-1.02)
[2021-01-11 08:30] LABS: MD SCAN
[2021-01-11] MEDS ORDERED: POTASSIUM CHLORIDE 40 MEQ in SODIUM CHLORIDE 0.9% 250 ML IV ONE (08:30)
[2021-01-11] MEDS ORDERED: POTASSIUM CHLORIDE 40 MEQ in SODIUM CHLORIDE 0.9% 500 ML IV ONE (09:30)
[2021-01-11] MEDS ORDERED: POTASSIUM CHLORIDE 20 MEQ TAB.ER.PRT PO ONE ×2 (10:30→21:30)
[2021-01-11] MEDS: ENOXAPARIN 40 MG/0.4 ML SQ SCH (10:30)
[2021-01-11 13:36] LABS: ANION GAP 9 mmol/L (5-15); CALCIUM 8.1 mg/dL (8.5-10.1); CHLORIDE 112 mmol/L (98-107); CREATININE 0.32 mg/dL (0.55-1.02)
[2021-01-11 13:38] VITALS: BP 113/73
[2021-01-11] MEDS ORDERED: GADOTERATE 10 MMOL/20ML SYR ONE (14:49)
[2021-01-11 18:35] LABS: ANION GAP 7 mmol/L (5-15); CALCIUM 8.4 mg/dL (8.5-10.1); CHLORIDE 112 mmol/L (98-107); CREATININE 0.44 mg/dL (0.55-1.02)
[2021-01-11 18:41] VITALS: BP 120/73
[2021-01-11] MEDS: ATORVASTATIN 20 MG TABLET PO SCH (21:00)
[2021-01-11] MEDS: LATANOPROST OPHTH 0.005%, 2.5ML EACHEYE SCH (21:00)
[2021-01-11] MEDS: CIPROFLOXACIN 500 MG TABLET PO SCH (21:00)
[2021-01-11] MEDS: MAGNESIUM CHLORIDE 64 MG TABLET.DR PO SCH (21:30)
[2021-01-12 00:16] VITALS: BP 126/80
[2021-01-12] MEDS ORDERED: POTASSIUM CHLORIDE 20 MEQ TAB.ER.PRT PO ONE ×2 (01:00)
[2021-01-12 05:39] LABS: ANION GAP 6 mmol/L (5-15); CALCIUM 8.5 mg/dL (8.5-10.1); CHLORIDE 112 mmol/L (98-107)
[2021-01-12 05:40] LABS: CREATININE 0.32 mg/dL (0.55-1.02)
[2021-01-12] MEDS ORDERED: POTASSIUM CHLORIDE 40 MEQ in SODIUM CHLORIDE 0.9% 500 ML IV ONE (06:30)
[2021-01-12 07:45] VITALS: BP 130/86
[2021-01-12] MEDS: ACETAMINOPHEN 650 MG/20.3 ML UDC PO PRN ×2 (08:05→12:38)
[2021-01-12] MEDS: ESCITALOPRAM 10MG TABLET PO SCH (08:05)
[2021-01-12] MEDS: LEVETIRACETAM 500 MG TABLET PO SCH ×2 (08:05→22:23)
[2021-01-12] MEDS: CIPROFLOXACIN 500 MG TABLET PO SCH ×2 (08:06→22:24)
[2021-01-12] MEDS: PSYLLIUM PACKET PO SCH (08:17)
[2021-01-12] MEDS: MAGNESIUM CHLORIDE 64 MG TABLET.DR PO SCH ×2 (08:17→22:23)
[2021-01-12] MEDS: ENOXAPARIN 40 MG/0.4 ML SQ SCH (11:38)
[2021-01-12 12:07] VITALS: BP 113/69
[2021-01-12] MEDS: CALCIUM CARBONATE 500 MG TAB.CHEW PO PRN (12:38)
[2021-01-12 12:48] LABS: ANION GAP 7 mmol/L (5-15); CALCIUM 8.5 mg/dL (8.5-10.1); CHLORIDE 114 mmol/L (98-107); CREATININE 0.43 mg/dL (0.55-1.02)
[2021-01-12] MEDS ORDERED: GADOTERATE 7.5 MMOL/15ML SYR ONE (13:52)
[2021-01-12 18:42] LABS: CLOSTRIDIUM DIFFICILE ANTIGEN NEGATIVE; CLOSTRIDIUM DIFFICILE TOXIN NEGATIVE (Negative)
[2021-01-12 19:17] VITALS: BP 120/70
[2021-01-12] MEDS: ATORVASTATIN 20 MG TABLET PO SCH (22:23)
[2021-01-12] MEDS: SIMETHICONE DROPS 40 MG/0.6 ML BOTTLE PO PRN (22:24)
[2021-01-12] MEDS: LATANOPROST OPHTH 0.005%, 2.5ML EACHEYE SCH (22:40)
[2021-01-13 01:03] VITALS: BP 128/75
[2021-01-13 05:38] LABS: MEAN CORPUSCULAR HEMOGLOBIN 31.6 pg (27.0-34.8); MEAN CORPUSCULAR HGB CONC 33.6 g/dL (32.4-35.8); MEAN PLATELET VOLUME 7.2 fL (7.4-10.4); PLATELET COUNT 285 x10^3/uL (130-400); RED BLOOD COUNT 3.26 x10^6/uL (3.82-5.3); RED CELL DISTRIBUTION WIDTH 16.7 % (9.6-15.2)
[2021-01-13 05:50] LABS: ANION GAP 7 mmol/L (5-15); CALCIUM 8.4 mg/dL (8.5-10.1); CHLORIDE 109 mmol/L (98-107)
[2021-01-13 05:51] LABS: CREATININE 0.36 mg/dL (0.55-1.02)
[2021-01-13 06:32] LABS: MD YES
[2021-01-13 06:34] LABS: BAND#(MANUAL) 0.34 x10^3/uL; BANDS%(MANUAL) 6 % (0-7); LYMPH#(MANUAL) 0.86 x10^3/uL (1-3.4); LYMPHS% (MANUAL) 15 % (22-44); METAMYELOCYTES# (MANUAL) 0.11 x10^3/uL (0-0); METAMYELOCYTES% (MANUAL) 2 % (0-1); MONOS#(MANUAL) 0.63 x10^3/uL (0.3-2.7); MONOS% (MANUAL) 11 % (2-9); REACTIVE LYMPHS # (MANUAL) 0.06 x10^3/uL (0-0); REACTIVE LYMPHS % (MANUAL) 1 % (0-0); SEG#(MANUAL) 3.71 x10^3/uL (1.8-6.8); SEGS% (MANUAL) 65 % (42-75)
[2021-01-13 06:35] LABS: <PLATELET ESTIMATE> ADEQUATE; <PLT MORPHOLOGY> NORMAL PLT MORPH; ANISOCYTOSIS 1+; POLYCHROMASIA 1+
[2021-01-13] MEDS ORDERED: POTASSIUM CHLORIDE 40 MEQ in SODIUM CHLORIDE 0.9% 500 ML IV ONE ×2 (07:00→20:30)
[2021-01-13] MEDS: SODIUM CHLORIDE 0.9% 1,000 ML IV SCH ×2 (08:14→18:00)
[2021-01-13 08:23] VITALS: BP 113/55
[2021-01-13] MEDS: LEVETIRACETAM 500 MG TABLET PO SCH ×3 (09:00→21:18)
[2021-01-13] MEDS: MAGNESIUM CHLORIDE 64 MG TABLET.DR PO SCH ×3 (09:00→21:17)
[2021-01-13] MEDS: CIPROFLOXACIN 500 MG TABLET PO SCH ×3 (09:00→21:17)
[2021-01-13] MEDS: ESCITALOPRAM 10MG TABLET PO SCH ×2 (09:00→10:12)
[2021-01-13] MEDS: PSYLLIUM PACKET PO SCH (10:03)
[2021-01-13] MEDS ORDERED: BACITRACIN OINT 500U/GM, 15 GM ONE (10:48)
[2021-01-13] MEDS ORDERED: MANNITOL PMX 20% 500 ML ONE (10:48)
[2021-01-13] MEDS ORDERED: CEFUROXIME 1.5 GM ONE (10:48)
[2021-01-13] MEDS ORDERED: BUPIVACAINE/PF 0.5% ONE (10:48)
[2021-01-13] MEDS ORDERED: EPINEPHRINE 1 MG/ML, 1ML ONE (10:48)
[2021-01-13] MEDS ORDERED: BACITRACIN 50,000 UNIT ONE (10:48)
[2021-01-13] MEDS ORDERED: FENTANYL PF 250 MCG/5ML ONE (12:26)
[2021-01-13] MEDS ORDERED: DEXAMETHASONE 4 MG/ML, 1ML ONE (14:01)
[2021-01-13] MEDS ORDERED: SUCCINYLCHOLINE 20 MG/ML, 10ML ONE (14:01)
[2021-01-13] MEDS ORDERED: PROPOFOL 10 MG/ML, 20ML ONE (14:01)
[2021-01-13] MEDS ORDERED: NEOSTIGMINE 1 MG/ML, 10ML ONE (14:01)
[2021-01-13] MEDS ORDERED: ROCURONIUM 10MG/ML,5ML ONE (14:01)
[2021-01-13] MEDS ORDERED: ONDANSETRON 2MG/ML, 2ML ONE (14:01)
[2021-01-13] MEDS ORDERED: CEFAZOLIN 1,000 MG ONE (14:01)
[2021-01-13] MEDS ORDERED: GLYCOPYRROLATE 0.2MG/1ML, 5ML ONE (14:01)
[2021-01-13] MEDS ORDERED: VANCOMYCIN 1,000 MG ONE (14:27)
[2021-01-13] MEDS ORDERED: THROMBIN 20,000 UNIT VIAL TP ONE (14:50)
[2021-01-13] MEDS ORDERED: BUPIVACAINE/PF-EPI 0.5% 1:200K INFIL ONE (14:57)
[2021-01-13] MEDS ORDERED: SUGAMMADEX 200 MG/2 ML IVPush ONE (15:19)
[2021-01-13] MEDS ORDERED: FENTANYL PF 100 MCG/2ML ONE ×2 (15:21→15:33)
[2021-01-13] MEDS ORDERED: ACETAMINOPHEN 650 MG/20.3 ML UDC ONE (15:21)
[2021-01-13] MEDS ORDERED: OXYcodone 5 MG/5 ML ORAL.SOL UDC ONE (15:21)
[2021-01-13] MEDS ORDERED: PROMETHAZINE 25 MG SUPP PR PRN (15:30)
[2021-01-13] MEDS ORDERED: HYDROmorphone 1 MG/ML, 1ML INJ IVPush PRN (15:30)
[2021-01-13] MEDS ORDERED: FENTANYL PF 100 MCG/2ML IV PRN (15:30)
[2021-01-13] MEDS ORDERED: OXYcodone 5 MG/5 ML ORAL.SOL UDC PO PRN (15:30)
[2021-01-13] MEDS ORDERED: ONDANSETRON 2MG/ML, 2ML IVPush PRN (15:30)
[2021-01-13] MEDS ORDERED: hydrALAzine 20 MG/ML, 1ML IV PRN (15:30)
[2021-01-13] MEDS ORDERED: ACETAMINOPHEN 325 MG TABLET PO PRN (15:30)
[2021-01-13] MEDS ORDERED: PROMETHAZINE 25 MG/ML, 1ML IVPush PRN (15:30)
[2021-01-13] MEDS ORDERED: LABETALOL 5MG/ML, 20ML IV PRN (15:30)
[2021-01-13] MEDS ORDERED: LIDOCAINE-MPF 2% ,5ML ONE ×2 (15:53)
[2021-01-13] MEDS: CEFAZOLIN 2,000 MG in SODIUM CHLORIDE 0.9% 50 ML IV SCH (18:06)
[2021-01-13 19:46] VITALS: BP 130/84
[2021-01-13] MEDS: ATORVASTATIN 20 MG TABLET PO SCH (21:17)
[2021-01-13] MEDS: LATANOPROST OPHTH 0.005%, 2.5ML EACHEYE SCH (21:18)
[2021-01-14 00:15] VITALS: BP 138/85
[2021-01-14] MEDS: CEFAZOLIN 2,000 MG in SODIUM CHLORIDE 0.9% 50 ML IV SCH (01:01)
[2021-01-14 05:46] LABS: MEAN CORPUSCULAR HEMOGLOBIN 32.3 pg (27.0-34.8); MEAN CORPUSCULAR HGB CONC 33.6 g/dL (32.4-35.8); MEAN PLATELET VOLUME 7.3 fL (7.4-10.4); PLATELET COUNT 320 x10^3/uL (130-400); RED BLOOD COUNT 2.84 x10^6/uL (3.82-5.3); RED CELL DISTRIBUTION WIDTH 16.7 % (9.6-15.2)
[2021-01-14 05:53] LABS: ALBUMIN 2.2 g/dL (3.4-5.0); ANION GAP 5 mmol/L (5-15); CALCIUM 8.3 mg/dL (8.5-10.1); CHLORIDE 114 mmol/L (98-107)
[2021-01-14 05:56] LABS: ALANINE AMINOTRANSFERASE 47 U/L (12-78); ALKALINE PHOSPHATASE 114 U/L (45-117); BILIRUBIN,TOTAL 0.5 mg/dL (0.2-1.0); CREATININE 0.33 mg/dL (0.55-1.02); TOTAL PROTEIN 5.6 g/dL (6.4-8.2)
[2021-01-14 06:58] LABS: MD YES
[2021-01-14 07:09] LABS: BANDS%(MANUAL) 3 % (0-7); LYMPHS% (MANUAL) 6 % (22-44); MONOS#(MANUAL) 0.54 x10^3/uL (0.3-2.7); MONOS% (MANUAL) 8 % (2-9)
[2021-01-14 07:10] LABS: METAMYELOCYTES# (MANUAL) 0.13 x10^3/uL (0-0); METAMYELOCYTES% (MANUAL) 2 % (0-1); SEG#(MANUAL) 5.43 x10^3/uL (1.8-6.8); SEGS% (MANUAL) 81 % (42-75)
[2021-01-14 07:12] LABS: ANISOCYTOSIS 1+
[2021-01-14 07:13] LABS: <PLATELET ESTIMATE> ADEQUATE; <PLT MORPHOLOGY> NORMAL PLT MORPH; POLYCHROMASIA 1+
[2021-01-14 07:14] VITALS: BP 108/72
[2021-01-14] MEDS: SODIUM CHLORIDE 0.9% 1,000 ML IV SCH ×2 (08:00→18:22)
[2021-01-14] MEDS: CIPROFLOXACIN 500 MG TABLET PO SCH ×2 (08:40→22:11)
[2021-01-14] MEDS: LEVETIRACETAM 500 MG TABLET PO SCH ×2 (08:41→22:10)
[2021-01-14] MEDS: MAGNESIUM CHLORIDE 64 MG TABLET.DR PO SCH ×2 (08:41→22:11)
[2021-01-14] MEDS: PSYLLIUM PACKET PO SCH (08:41)
[2021-01-14] MEDS: ESCITALOPRAM 10MG TABLET PO SCH (08:41)
[2021-01-14 12:37] VITALS: BP 120/78
[2021-01-14] MEDS: ACETAMINOPHEN 650 MG/20.3 ML UDC PO PRN (15:32)
[2021-01-14 18:09] VITALS: BP 98/63
[2021-01-14 20:15] VITALS: BP 103/66
[2021-01-14] MEDS: ATORVASTATIN 20 MG TABLET PO SCH (22:11)
[2021-01-14] MEDS: LATANOPROST OPHTH 0.005%, 2.5ML EACHEYE SCH (23:43)
[2021-01-15 01:28] VITALS: BP 96/56
[2021-01-15] MEDS: SODIUM CHLORIDE 0.9% 1,000 ML IV SCH ×2 (04:04→13:39)
[2021-01-15 05:25] LABS: MEAN CORPUSCULAR HGB CONC 33.3 g/dL (32.4-35.8); MEAN PLATELET VOLUME 7.4 fL (7.4-10.4); PLATELET COUNT 317 x10^3/uL (130-400); RED BLOOD COUNT 2.62 x10^6/uL (3.82-5.3); RED CELL DISTRIBUTION WIDTH 16.9 % (9.6-15.2)
[2021-01-15 05:33] LABS: ANION GAP 5 mmol/L (5-15); CHLORIDE 114 mmol/L (98-107)
[2021-01-15 05:34] LABS: CREATININE 0.27 mg/dL (0.55-1.02)
[2021-01-15 06:04] LABS: MD YES
[2021-01-15 06:05] LABS: BAND#(MANUAL) 0.12 x10^3/uL; BANDS%(MANUAL) 2 % (0-7); METAMYELOCYTES# (MANUAL) 0.12 x10^3/uL (0-0); METAMYELOCYTES% (MANUAL) 2 % (0-1); SEG#(MANUAL) 3.77 x10^3/uL (1.8-6.8); SEGS% (MANUAL) 65 % (42-75)
[2021-01-15 06:06] LABS: ANISOCYTOSIS 1+; LYMPH#(MANUAL) 1.28 x10^3/uL (1-3.4); LYMPHS% (MANUAL) 22 % (22-44); MONOS#(MANUAL) 0.46 x10^3/uL (0.3-2.7); MONOS% (MANUAL) 8 % (2-9); MYELOCYTES# (MANUAL) 0.06 x10^3/uL (0-0); MYELOCYTES% (MANUAL) 1 % (0-0); POLYCHROMASIA 1+
[2021-01-15 06:07] LABS: <PLATELET ESTIMATE> ADEQUATE; <PLT MORPHOLOGY> NORMAL PLT MORPH
[2021-01-15 06:34] VITALS: BP 112/68
[2021-01-15] MEDS: PSYLLIUM PACKET PO SCH (09:39)
[2021-01-15] MEDS: ESCITALOPRAM 10MG TABLET PO SCH (09:40)
[2021-01-15] MEDS: MAGNESIUM CHLORIDE 64 MG TABLET.DR PO SCH ×2 (09:40→20:32)
[2021-01-15] MEDS: LEVETIRACETAM 500 MG TABLET PO SCH ×3 (09:40→20:33)
[2021-01-15] MEDS: CIPROFLOXACIN 500 MG TABLET PO SCH ×2 (09:41→20:33)
[2021-01-15 12:09] VITALS: BP 103/66
[2021-01-15] MEDS ORDERED: POTASSIUM CHLORIDE 20 MEQ TAB.ER.PRT PO ONE (13:00)
[2021-01-15 18:36] VITALS: BP 94/60
[2021-01-15] MEDS: ATORVASTATIN 20 MG TABLET PO SCH ×2 (20:32→20:33)
[2021-01-15] MEDS: LATANOPROST OPHTH 0.005%, 2.5ML EACHEYE SCH (20:33)
[2021-01-16] MEDS: SODIUM CHLORIDE 0.9% 1,000 ML IV SCH ×2 (00:05→10:13)
[2021-01-16 00:19] VITALS: BP 118/67
[2021-01-16 06:17] VITALS: BP 114/71
[2021-01-16 07:32] LABS: ANION GAP 6 mmol/L (5-15); CHLORIDE 113 mmol/L (98-107); CREATININE 0.26 mg/dL (0.55-1.02)
[2021-01-16] MEDS ORDERED: HYDROcodone/APAP 5/325 TABLET ONE (08:50)
[2021-01-16] MEDS: CIPROFLOXACIN 500 MG TABLET PO SCH (08:55)
[2021-01-16] MEDS: LEVETIRACETAM 500 MG TABLET PO SCH ×2 (08:55→21:55)
[2021-01-16] MEDS: ESCITALOPRAM 10MG TABLET PO SCH (08:55)
[2021-01-16] MEDS: PSYLLIUM PACKET PO SCH (08:56)
[2021-01-16] MEDS: MAGNESIUM CHLORIDE 64 MG TABLET.DR PO SCH ×2 (08:56→21:55)
[2021-01-16] MEDS: HYDROcodone/APAP 5/325 TABLET PO PRN ×2 (08:56→21:56)
[2021-01-16 12:23] VITALS: BP 95/60
[2021-01-16] MEDS: POTASSIUM CHLORIDE 20 MEQ TAB.ER.PRT PO SCH ×2 (17:14→21:57)
[2021-01-16] MEDS: D5%-0.45NACL+KCL 20MEQ 1,000 ML IV SCH (17:14)
[2021-01-16] MEDS: ERTAPENEM 1 GM in SODIUM CHLORIDE 0.9% 50 ML IV SCH (18:34)
[2021-01-16 19:32] VITALS: BP 116/77
[2021-01-16 20:17] LABS: CALCIUM 7.9 mg/dL (8.5-10.1); CHLORIDE 113 mmol/L (98-107)
[2021-01-16 20:26] LABS: ANION GAP 5 mmol/L (5-15)
[2021-01-16] MEDS: CALCIUM CARBONATE 500 MG TAB.CHEW PO PRN (21:55)
[2021-01-16] MEDS: ATORVASTATIN 20 MG TABLET PO SCH (21:55)
[2021-01-16] MEDS: LATANOPROST OPHTH 0.005%, 2.5ML EACHEYE SCH (21:57)
[2021-01-17 00:28] VITALS: BP 112/72
[2021-01-17 05:11] LABS: MEAN CORPUSCULAR HEMOGLOBIN 32.1 pg (27.0-34.8); MEAN CORPUSCULAR HGB CONC 33.6 g/dL (32.4-35.8); MEAN PLATELET VOLUME 7.3 fL (7.4-10.4); PLATELET COUNT 343 x10^3/uL (130-400); RED BLOOD COUNT 2.82 x10^6/uL (3.82-5.3); RED CELL DISTRIBUTION WIDTH 16.6 % (9.6-15.2)
[2021-01-17 05:26] LABS: ANION GAP 3 mmol/L (5-15); CALCIUM 8.5 mg/dL (8.5-10.1); CHLORIDE 112 mmol/L (98-107)
[2021-01-17 05:27] LABS: CREATININE 0.33 mg/dL (0.55-1.02)
[2021-01-17 05:51] LABS: MD YES
[2021-01-17 05:53] LABS: <PLATELET ESTIMATE> ADEQUATE; <PLT MORPHOLOGY> NORMAL PLT MORPH; ANISOCYTOSIS 1+; BAND#(MANUAL) 0.15 x10^3/uL; BANDS%(MANUAL) 2 % (0-7); BASOS#(MANUAL) 0.07 x10^3/uL (0-0.1); BASOS% (MANUAL) 1 % (0-1); LYMPH#(MANUAL) 1.33 x10^3/uL (1-3.4); LYMPHS% (MANUAL) 18 % (22-44); MONOS#(MANUAL) 0.52 x10^3/uL (0.3-2.7); MONOS% (MANUAL) 7 % (2-9); MYELOCYTES# (MANUAL) 0.07 x10^3/uL (0-0); MYELOCYTES% (MANUAL) 1 % (0-0); POLYCHROMASIA 1+; SEG#(MANUAL) 5.25 x10^3/uL (1.8-6.8); SEGS% (MANUAL) 71 % (42-75); SMUDGE CELLS 1+
[2021-01-17 08:10] VITALS: BP 111/74
[2021-01-17] MEDS: MAGNESIUM CHLORIDE 64 MG TABLET.DR PO SCH ×2 (09:00→20:24)
[2021-01-17] MEDS: ESCITALOPRAM 10MG TABLET PO SCH (09:00)
[2021-01-17] MEDS: LEVETIRACETAM 500 MG TABLET PO SCH ×2 (09:00→20:23)
[2021-01-17] MEDS: PSYLLIUM PACKET PO SCH (09:00)
[2021-01-17] MEDS: POTASSIUM CHLORIDE 20 MEQ TAB.ER.PRT PO SCH (10:48)
[2021-01-17 12:05] VITALS: BP 114/78
[2021-01-17] MEDS: D5%-0.45NACL+KCL 20MEQ 1,000 ML IV SCH (16:30)
[2021-01-17] MEDS: ERTAPENEM 1 GM in SODIUM CHLORIDE 0.9% 50 ML IV SCH (17:00)
[2021-01-17 19:38] VITALS: BP 103/66
[2021-01-17] MEDS: ATORVASTATIN 20 MG TABLET PO SCH (20:23)
[2021-01-17] MEDS: LATANOPROST OPHTH 0.005%, 2.5ML EACHEYE SCH ×2 (20:24→20:28)
[2021-01-17] MEDS: ACETAMINOPHEN 650 MG/20.3 ML UDC PO PRN (20:24)
[2021-01-18 00:35] VITALS: BP 115/67
[2021-01-18] MEDS: D5%-0.45NACL+KCL 20MEQ 1,000 ML IV SCH ×2 (05:44→17:54)
[2021-01-18 06:50] VITALS: BP 131/75
[2021-01-18] MEDS: LEVETIRACETAM 500 MG TABLET PO SCH ×2 (08:36→19:55)
[2021-01-18] MEDS: MAGNESIUM CHLORIDE 64 MG TABLET.DR PO SCH ×2 (08:37→19:55)
[2021-01-18] MEDS: PSYLLIUM PACKET PO SCH (08:37)
[2021-01-18] MEDS: ESCITALOPRAM 10MG TABLET PO SCH (08:37)
[2021-01-18 13:10] VITALS: BP 125/70
[2021-01-18] MEDS: ERTAPENEM 1 GM in SODIUM CHLORIDE 0.9% 50 ML IV SCH (17:54)
[2021-01-18] MEDS: ATORVASTATIN 20 MG TABLET PO SCH (19:56)
[2021-01-18] MEDS: LATANOPROST OPHTH 0.005%, 2.5ML EACHEYE SCH (19:56)
[2021-01-18 20:07] VITALS: BP 114/72
[2021-01-19 00:14] VITALS: BP 102/69
[2021-01-19 07:35] VITALS: BP 112/72
[2021-01-19] MEDS: LEVETIRACETAM 500 MG TABLET PO SCH ×2 (09:12→20:19)
[2021-01-19] MEDS: D5%-0.45NACL+KCL 20MEQ 1,000 ML IV SCH (09:13)
[2021-01-19] MEDS: MAGNESIUM CHLORIDE 64 MG TABLET.DR PO SCH ×2 (09:13→20:18)
[2021-01-19] MEDS: PSYLLIUM PACKET PO SCH (09:13)
[2021-01-19] MEDS: ESCITALOPRAM 10MG TABLET PO SCH (09:13)
[2021-01-19 09:56] LABS: MEAN CORPUSCULAR HEMOGLOBIN 31.7 pg (27.0-34.8); MEAN CORPUSCULAR HGB CONC 34.3 g/dL (32.4-35.8); MEAN PLATELET VOLUME 7.7 fL (7.4-10.4); PLATELET COUNT 314 x10^3/uL (130-400); RED BLOOD COUNT 3.22 x10^6/uL (3.82-5.3); RED CELL DISTRIBUTION WIDTH 16.7 % (9.6-15.2)
[2021-01-19 10:02] LABS: ANION GAP 6 mmol/L (5-15); CHLORIDE 106 mmol/L (98-107); CREATININE 0.31 mg/dL (0.55-1.02)
[2021-01-19 10:10] LABS: MD YES
[2021-01-19 10:12] LABS: BAND#(MANUAL) 0.11 x10^3/uL; BANDS%(MANUAL) 1 % (0-7); LYMPH#(MANUAL) 2.52 x10^3/uL (1-3.4); LYMPHS% (MANUAL) 24 % (22-44); MONOS#(MANUAL) 0.95 x10^3/uL (0.3-2.7); MONOS% (MANUAL) 9 % (2-9); SEG#(MANUAL) 6.93 x10^3/uL (1.8-6.8); SEGS% (MANUAL) 66 % (42-75)
[2021-01-19 10:13] LABS: <PLATELET ESTIMATE> ADEQUATE; <PLT MORPHOLOGY> NORMAL PLT MORPH; ANISOCYTOSIS 1+; POLYCHROMASIA 1+
[2021-01-19 12:17] VITALS: BP 125/81
[2021-01-19] MEDS: ERTAPENEM 1 GM in SODIUM CHLORIDE 0.9% 50 ML IV SCH (16:56)
[2021-01-19 19:58] VITALS: BP 110/70
[2021-01-19] MEDS: ATORVASTATIN 20 MG TABLET PO SCH (20:18)
[2021-01-19] MEDS: LATANOPROST OPHTH 0.005%, 2.5ML EACHEYE SCH (20:27)
[2021-01-20 00:37] VITALS: BP 106/79
[2021-01-20 07:15] VITALS: BP 114/74
[2021-01-20] MEDS: LEVETIRACETAM 500 MG TABLET PO SCH ×2 (09:16→20:22)
[2021-01-20] MEDS: MAGNESIUM CHLORIDE 64 MG TABLET.DR PO SCH ×2 (09:16→20:23)
[2021-01-20] MEDS: PSYLLIUM PACKET PO SCH (09:18)
[2021-01-20] MEDS: ESCITALOPRAM 10MG TABLET PO SCH (09:18)
[2021-01-20 13:11] VITALS: BP 109/71
[2021-01-20] MEDS: ERTAPENEM 1 GM in SODIUM CHLORIDE 0.9% 50 ML IV SCH (17:37)
[2021-01-20 20:20] VITALS: BP 111/71
[2021-01-20] MEDS: ATORVASTATIN 20 MG TABLET PO SCH (20:23)
[2021-01-20] MEDS: LATANOPROST OPHTH 0.005%, 2.5ML EACHEYE SCH (20:25)
[2021-01-21 02:40] VITALS: BP 106/69
[2021-01-21 07:49] VITALS: BP 93/60
[2021-01-21] MEDS: MAGNESIUM CHLORIDE 64 MG TABLET.DR PO SCH ×2 (09:05→20:09)
[2021-01-21] MEDS: ESCITALOPRAM 10MG TABLET PO SCH (09:05)
[2021-01-21] MEDS: LEVETIRACETAM 500 MG TABLET PO SCH ×2 (09:05→20:09)
[2021-01-21 12:41] VITALS: BP 115/74
[2021-01-21 12:42] VITALS: BP_SYST 109; BP_SYST 99; BP_DIAS 78; BP_DIAS 81
[2021-01-21 13:27] VITALS: BP 106/74
[2021-01-21] MEDS: ERTAPENEM 1 GM in SODIUM CHLORIDE 0.9% 50 ML IV SCH (17:34)
[2021-01-21 20:00] VITALS: BP 118/75
[2021-01-21] MEDS: LATANOPROST OPHTH 0.005%, 2.5ML EACHEYE SCH (20:08)
[2021-01-21] MEDS: ATORVASTATIN 20 MG TABLET PO SCH (20:09)
[2021-01-22 01:12] VITALS: BP 111/76
[2021-01-22 07:51] VITALS: BP 106/69
[2021-01-22] MEDS: MAGNESIUM CHLORIDE 64 MG TABLET.DR PO SCH ×2 (09:00→20:09)
[2021-01-22] MEDS: CHOLESTYRAMINE LIGHT 4GM PACKET PO SCH (10:33)
[2021-01-22] MEDS: ESCITALOPRAM 10MG TABLET PO SCH (10:33)
[2021-01-22] MEDS: LEVETIRACETAM 500 MG TABLET PO SCH ×2 (10:33→20:09)
[2021-01-22 12:12] VITALS: BP 131/87
[2021-01-22] MEDS: ERTAPENEM 1 GM in SODIUM CHLORIDE 0.9% 50 ML IV SCH (17:53)
[2021-01-22 20:00] VITALS: BP 110/67
[2021-01-22] MEDS: LATANOPROST OPHTH 0.005%, 2.5ML EACHEYE SCH (20:09)
[2021-01-22] MEDS: ATORVASTATIN 20 MG TABLET PO SCH (20:09)
[2021-01-22 20:33] VITALS: BP 107/70
[2021-01-23 01:50] VITALS: BP 101/64
[2021-01-23 07:47] VITALS: BP 94/60
[2021-01-23] MEDS: MAGNESIUM CHLORIDE 64 MG TABLET.DR PO SCH ×2 (10:46→21:03)
[2021-01-23] MEDS: ESCITALOPRAM 10MG TABLET PO SCH (10:46)
[2021-01-23] MEDS: LEVETIRACETAM 500 MG TABLET PO SCH ×2 (10:46→21:03)
[2021-01-23] MEDS: HYDROcodone/APAP 5/325 TABLET PO PRN ×2 (10:47→15:05)
[2021-01-23] MEDS: CHOLESTYRAMINE LIGHT 4GM PACKET PO SCH (13:00)
[2021-01-23 13:04] VITALS: BP 98/63
[2021-01-23 15:36] LABS: BASOPHILS % (AUTO) 1 % (0-1); EOSINOPHILS % (AUTO) 0 % (1-7); LYMPHOCYTES % (AUTO) 26 % (22-44); MEAN CORPUSCULAR HEMOGLOBIN 30.8 pg (27.0-34.8); MEAN CORPUSCULAR HGB CONC 33.2 g/dL (32.4-35.8); MEAN PLATELET VOLUME 7.6 fL (7.4-10.4); MONOCYTES % (AUTO) 16 % (2-9); NEUTROPHILS % (AUTO) 57 % (42-75); PLATELET COUNT 336 x10^3/uL (130-400); RED BLOOD COUNT 3.32 x10^6/uL (3.82-5.3); RED CELL DISTRIBUTION WIDTH 17.7 % (9.6-15.2)
[2021-01-23 15:41] LABS: MD NO
[2021-01-23 15:46] LABS: ALBUMIN 2.9 g/dL (3.4-5.0); ANION GAP 5 mmol/L (5-15); CALCIUM 9.5 mg/dL (8.5-10.1); CHLORIDE 108 mmol/L (98-107)
[2021-01-23 15:49] LABS: ALANINE AMINOTRANSFERASE 34 U/L (12-78); ALKALINE PHOSPHATASE 89 U/L (45-117); BILIRUBIN,TOTAL 0.8 mg/dL (0.2-1.0); TOTAL PROTEIN 7.6 g/dL (6.4-8.2)
[2021-01-23 16:06] LABS: CREATININE 0.41 mg/dL (0.55-1.02)
[2021-01-23] MEDS: ERTAPENEM 1 GM in SODIUM CHLORIDE 0.9% 50 ML IV SCH (18:18)
[2021-01-23 19:38] VITALS: BP 98/61
[2021-01-23] MEDS: ATORVASTATIN 20 MG TABLET PO SCH (21:03)
[2021-01-23] MEDS: LATANOPROST OPHTH 0.005%, 2.5ML EACHEYE SCH (21:04)
[2021-01-24] MEDS: HYDROcodone/APAP 5/325 TABLET PO PRN ×2 (01:17→13:24)
[2021-01-24 01:36] VITALS: BP 101/63
[2021-01-24 01:46] LABS: MICROSCOPIC INDICATED
[2021-01-24 06:37] VITALS: BP 95/59
[2021-01-24] MEDS: LEVETIRACETAM 500 MG TABLET PO SCH ×2 (08:03→20:21)
[2021-01-24] MEDS: ESCITALOPRAM 10MG TABLET PO SCH (08:04)
[2021-01-24] MEDS: MAGNESIUM CHLORIDE 64 MG TABLET.DR PO SCH ×2 (08:04→20:21)
[2021-01-24] MEDS: CHOLESTYRAMINE LIGHT 4GM PACKET PO SCH (12:00)
[2021-01-24 12:21] VITALS: BP 96/64
[2021-01-24] MEDS: SIMETHICONE DROPS 40 MG/0.6 ML BOTTLE PO PRN (14:58)
[2021-01-24] MEDS: ERTAPENEM 1 GM in SODIUM CHLORIDE 0.9% 50 ML IV SCH (18:06)
[2021-01-24] MEDS: POTASSIUM CHLORIDE 20 MEQ PACKET PO SCH (18:06)
[2021-01-24 19:59] VITALS: BP 100/66
[2021-01-24] MEDS: LATANOPROST OPHTH 0.005%, 2.5ML EACHEYE SCH (20:21)
[2021-01-24] MEDS: ATORVASTATIN 20 MG TABLET PO SCH (20:21)
[2021-01-25 02:03] VITALS: BP 98/62
[2021-01-25 08:26] VITALS: BP 101/66
[2021-01-25] MEDS: LEVETIRACETAM 500 MG TABLET PO SCH ×2 (09:16→20:49)
[2021-01-25] MEDS: SIMETHICONE DROPS 40 MG/0.6 ML BOTTLE PO PRN ×2 (09:16→20:48)
[2021-01-25] MEDS: MAGNESIUM CHLORIDE 64 MG TABLET.DR PO SCH ×2 (09:16→20:49)
[2021-01-25] MEDS: CHOLESTYRAMINE LIGHT 4GM PACKET PO SCH (09:17)
[2021-01-25] MEDS: POTASSIUM CHLORIDE 20 MEQ PACKET PO SCH (09:17)
[2021-01-25] MEDS: ESCITALOPRAM 10MG TABLET PO SCH (09:17)
[2021-01-25 13:43] VITALS: BP 91/58
[2021-01-25] MEDS: ERTAPENEM 1 GM in SODIUM CHLORIDE 0.9% 50 ML IV SCH (17:30)
[2021-01-25] MEDS: LATANOPROST OPHTH 0.005%, 2.5ML EACHEYE SCH (20:48)
[2021-01-25] MEDS: ATORVASTATIN 20 MG TABLET PO SCH (20:49)
[2021-01-25 21:15] VITALS: BP 97/63
[2021-01-26 01:06] VITALS: BP 105/70
[2021-01-26 08:52] VITALS: BP 98/61
[2021-01-26] MEDS: POTASSIUM CHLORIDE 20 MEQ PACKET PO SCH (10:02)
[2021-01-26] MEDS: CHOLESTYRAMINE LIGHT 4GM PACKET PO SCH (10:02)
[2021-01-26] MEDS: LEVETIRACETAM 500 MG TABLET PO SCH ×2 (10:03→21:46)
[2021-01-26] MEDS: MAGNESIUM CHLORIDE 64 MG TABLET.DR PO SCH ×2 (10:03→21:46)
[2021-01-26] MEDS: ESCITALOPRAM 10MG TABLET PO SCH (10:03)
[2021-01-26] MEDS: SIMETHICONE DROPS 40 MG/0.6 ML BOTTLE PO PRN (10:24)
[2021-01-26 12:01] LABS: BASOPHILS % (AUTO) 2 % (0-1); EOSINOPHILS % (AUTO) 1 % (1-7); LYMPHOCYTES % (AUTO) 27 % (22-44); MEAN CORPUSCULAR HEMOGLOBIN 30.3 pg (27.0-34.8); MEAN CORPUSCULAR HGB CONC 32.6 g/dL (32.4-35.8); MEAN PLATELET VOLUME 7.7 fL (7.4-10.4); MONOCYTES % (AUTO) 10 % (2-9); NEUTROPHILS % (AUTO) 60 % (42-75); PLATELET COUNT 364 x10^3/uL (130-400); RED BLOOD COUNT 3.56 x10^6/uL (3.82-5.3); RED CELL DISTRIBUTION WIDTH 17.1 % (9.6-15.2)
[2021-01-26 12:02] LABS: MD NO
[2021-01-26 12:22] VITALS: BP 112/75
[2021-01-26] MEDS: ERTAPENEM 1 GM in SODIUM CHLORIDE 0.9% 50 ML IV SCH (17:18)
[2021-01-26 21:44] VITALS: BP 115/79
[2021-01-26] MEDS: ATORVASTATIN 20 MG TABLET PO SCH (21:46)
[2021-01-26] MEDS: LATANOPROST OPHTH 0.005%, 2.5ML EACHEYE SCH (21:46)
[2021-01-27 01:18] VITALS: BP 103/64
[2021-01-27 07:48] VITALS: BP 121/74
[2021-01-27] MEDS: POTASSIUM CHLORIDE 20 MEQ PACKET PO SCH (10:07)
[2021-01-27] MEDS: CALCIUM CARBONATE 500 MG TAB.CHEW PO PRN ×2 (10:12→19:19)
[2021-01-27] MEDS: MAGNESIUM CHLORIDE 64 MG TABLET.DR PO SCH ×2 (10:12→22:08)
[2021-01-27] MEDS: ESCITALOPRAM 10MG TABLET PO SCH (10:12)
[2021-01-27] MEDS: LEVETIRACETAM 500 MG TABLET PO SCH ×2 (10:12→22:09)
[2021-01-27 12:03] VITALS: BP 114/68
[2021-01-27] MEDS: ERTAPENEM 1 GM in SODIUM CHLORIDE 0.9% 50 ML IV SCH (18:23)
[2021-01-27] MEDS: SIMETHICONE DROPS 40 MG/0.6 ML BOTTLE PO PRN (18:24)
[2021-01-27] MEDS: ACETAMINOPHEN 650 MG/20.3 ML UDC PO PRN (19:19)
[2021-01-27 20:14] VITALS: BP 110/79
[2021-01-27] MEDS: ATORVASTATIN 20 MG TABLET PO SCH (22:08)
[2021-01-27] MEDS: LATANOPROST OPHTH 0.005%, 2.5ML EACHEYE SCH (22:09)
[2021-01-28 02:27] VITALS: BP 121/74
[2021-01-28 07:15] VITALS: BP 112/70
[2021-01-28] MEDS: ESCITALOPRAM 10MG TABLET PO SCH (09:11)
[2021-01-28] MEDS: SIMETHICONE DROPS 40 MG/0.6 ML BOTTLE PO PRN (09:12)
[2021-01-28] MEDS: LEVETIRACETAM 500 MG TABLET PO SCH ×2 (09:12→21:42)
[2021-01-28] MEDS: POTASSIUM CHLORIDE 20 MEQ PACKET PO SCH (09:12)
[2021-01-28] MEDS: MAGNESIUM CHLORIDE 64 MG TABLET.DR PO SCH ×2 (09:12→21:43)
[2021-01-28 12:30] VITALS: BP 109/71
[2021-01-28] MEDS: ACETAMINOPHEN 650 MG/20.3 ML UDC PO PRN (14:36)
[2021-01-28] MEDS: CALCIUM CARBONATE 500 MG TAB.CHEW PO PRN (14:36)
[2021-01-28] MEDS: HYDROcodone/APAP 5/325 TABLET PO PRN (14:54)
[2021-01-28] MEDS: ERTAPENEM 1 GM in SODIUM CHLORIDE 0.9% 50 ML IV SCH (18:32)
[2021-01-28 20:00] VITALS: BP 102/68
[2021-01-28] MEDS: ATORVASTATIN 20 MG TABLET PO SCH (21:42)
[2021-01-28] MEDS: LATANOPROST OPHTH 0.005%, 2.5ML EACHEYE SCH (21:42)
[2021-01-29 02:50] VITALS: BP 122/81
[2021-01-29] MEDS: MAGNESIUM CHLORIDE 64 MG TABLET.DR PO SCH ×2 (09:44→22:00)
[2021-01-29] MEDS: HYDROcodone/APAP 5/325 TABLET PO PRN ×2 (09:44→22:01)
[2021-01-29] MEDS: ESCITALOPRAM 10MG TABLET PO SCH (09:44)
[2021-01-29] MEDS: LEVETIRACETAM 500 MG TABLET PO SCH ×2 (09:44→22:01)
[2021-01-29] MEDS: POTASSIUM CHLORIDE 20 MEQ PACKET PO SCH (09:47)
[2021-01-29 15:05] VITALS: BP 100/76
[2021-01-29] MEDS: SIMETHICONE DROPS 40 MG/0.6 ML BOTTLE PO PRN (15:20)
[2021-01-29] MEDS: ACETAMINOPHEN 650 MG/20.3 ML UDC PO PRN (15:34)
[2021-01-29] MEDS ORDERED: ERTAPENEM 1 GM in SODIUM CHLORIDE 0.9% 50 ML IV SCH (17:30)
[2021-01-29 21:01] VITALS: BP 96/22
[2021-01-29] MEDS: LATANOPROST OPHTH 0.005%, 2.5ML EACHEYE SCH (22:01)
[2021-01-29] MEDS: ATORVASTATIN 20 MG TABLET PO SCH (22:01)
[2021-01-30 01:46] VITALS: BP 106/66
[2021-01-30] MEDS: ESCITALOPRAM 10MG TABLET PO SCH (09:20)
[2021-01-30] MEDS: MAGNESIUM CHLORIDE 64 MG TABLET.DR PO SCH ×2 (09:20→21:37)
[2021-01-30] MEDS: POTASSIUM CHLORIDE 20 MEQ PACKET PO SCH (09:20)
[2021-01-30] MEDS: LEVETIRACETAM 500 MG TABLET PO SCH ×2 (09:22→21:36)
[2021-01-30] MEDS: SIMETHICONE DROPS 40 MG/0.6 ML BOTTLE PO PRN ×2 (09:23→15:52)
[2021-01-30 09:40] VITALS: BP 100/66
[2021-01-30 13:50] VITALS: BP 102/68
[2021-01-30 15:51] LABS: ALANINE AMINOTRANSFERASE 59 U/L (12-78); ALBUMIN 3.6 g/dL (3.4-5.0); CREATININE 0.45 mg/dL (0.55-1.02)
[2021-01-30 15:52] LABS: ALKALINE PHOSPHATASE 106 U/L (45-117); BILIRUBIN,TOTAL 0.8 mg/dL (0.2-1.0)
[2021-01-30 16:01] LABS: ANION GAP 6 mmol/L (5-15); CHLORIDE 112 mmol/L (98-107)
[2021-01-30] MEDS: ACETAMINOPHEN 650 MG/20.3 ML UDC PO PRN (16:40)
[2021-01-30 19:19] VITALS: BP 110/77
[2021-01-30] MEDS: LATANOPROST OPHTH 0.005%, 2.5ML EACHEYE SCH (21:36)
[2021-01-30] MEDS: ATORVASTATIN 20 MG TABLET PO SCH (21:36)
[2021-01-31 01:26] VITALS: BP 100/66
[2021-01-31 06:23] VITALS: BP 90/55
[2021-01-31] MEDS: POTASSIUM CHLORIDE 20 MEQ PACKET PO SCH (10:24)
[2021-01-31] MEDS: ESCITALOPRAM 10MG TABLET PO SCH (10:24)
[2021-01-31] MEDS: LEVETIRACETAM 500 MG TABLET PO SCH ×2 (10:24→20:25)
[2021-01-31] MEDS: MAGNESIUM CHLORIDE 64 MG TABLET.DR PO SCH ×2 (10:24→20:25)
[2021-01-31] MEDS: HYDROcodone/APAP 5/325 TABLET PO PRN ×2 (12:33→16:52)
[2021-01-31 13:56] VITALS: BP 102/67
[2021-01-31] MEDS ORDERED: OMNIPAQUE 350 MG/ML, 100ML BOTTLE ONE (16:18)
[2021-01-31 19:47] VITALS: BP 99/59
[2021-01-31] MEDS: LATANOPROST OPHTH 0.005%, 2.5ML EACHEYE SCH (20:25)
[2021-01-31] MEDS: ATORVASTATIN 20 MG TABLET PO SCH (20:25)
[2021-02-01 01:23] VITALS: BP 106/62
[2021-02-01] MEDS: POTASSIUM CHLORIDE 20 MEQ PACKET PO SCH (07:32)
[2021-02-01] MEDS: HYDROcodone/APAP 5/325 TABLET PO PRN ×2 (07:33→13:54)
[2021-02-01 07:38] VITALS: BP 97/61
[2021-02-01] MEDS: MAGNESIUM CHLORIDE 64 MG TABLET.DR PO SCH ×2 (09:21→21:14)
[2021-02-01] MEDS: ESCITALOPRAM 10MG TABLET PO SCH (09:21)
[2021-02-01] MEDS: LEVETIRACETAM 500 MG TABLET PO SCH ×2 (09:22→21:14)
[2021-02-01] MEDS: PANTOPRAZOLE 40 MG IV IVPush SCH ×2 (09:38→21:14)
[2021-02-01 14:09] VITALS: BP 105/69
[2021-02-01] MEDS ORDERED: POLYETHYLENE GLYCOL 17 GM PACKET ONE (14:22)
[2021-02-01] MEDS ORDERED: POLYETHYLENE GLYCOL 17 GM PACKET NG PRN (14:30)
[2021-02-01 19:07] VITALS: BP 101/64
[2021-02-01] MEDS: ATORVASTATIN 20 MG TABLET PO SCH (21:14)
[2021-02-01] MEDS: LATANOPROST OPHTH 0.005%, 2.5ML EACHEYE SCH (21:14)
[2021-02-02 01:45] VITALS: BP 101/64
[2021-02-02 06:05] LABS: CHLORIDE 114 mmol/L (98-107)
[2021-02-02 06:11] LABS: ALANINE AMINOTRANSFERASE 44 U/L (12-78); ALBUMIN 3.2 g/dL (3.4-5.0); ALKALINE PHOSPHATASE 89 U/L (45-117); ANION GAP 5 mmol/L (5-15); BILIRUBIN,TOTAL 0.7 mg/dL (0.2-1.0); CALCIUM 9.4 mg/dL (8.5-10.1); CREATININE 0.38 mg/dL (0.55-1.02); TOTAL PROTEIN 6.9 g/dL (6.4-8.2)
[2021-02-02 06:55] VITALS: BP 105/63
[2021-02-02] MEDS: HYDROcodone/APAP 5/325 TABLET PO PRN (07:13)
[2021-02-02] MEDS: POTASSIUM CHLORIDE 20 MEQ PACKET PO SCH (08:44)
[2021-02-02] MEDS: MAGNESIUM CHLORIDE 64 MG TABLET.DR PO SCH ×2 (08:45→21:37)
[2021-02-02] MEDS: ESCITALOPRAM 10MG TABLET PO SCH (08:45)
[2021-02-02] MEDS: DOCUSATE 100 MG CAPSULE PO SCH ×2 (08:45→21:37)
[2021-02-02] MEDS: LEVETIRACETAM 500 MG TABLET PO SCH ×2 (08:45→21:36)
[2021-02-02] MEDS: PANTOPRAZOLE 40 MG IV IVPush SCH ×2 (08:45→21:37)
[2021-02-02 12:35] VITALS: BP 102/68
[2021-02-02 18:44] VITALS: BP 102/65
[2021-02-02] MEDS: ATORVASTATIN 20 MG TABLET PO SCH (21:37)
[2021-02-02] MEDS: LATANOPROST OPHTH 0.005%, 2.5ML EACHEYE SCH (21:37)
[2021-02-03 00:30] VITALS: BP 101/67
[2021-02-03 01:11] VITALS: BP 97/60
[2021-02-03 08:06] VITALS: BP 95/59
[2021-02-03] MEDS: PANTOPRAZOLE 40 MG IV IVPush SCH ×2 (08:52→22:04)
[2021-02-03] MEDS: MAGNESIUM CHLORIDE 64 MG TABLET.DR PO SCH ×2 (08:52→22:04)
[2021-02-03] MEDS: LEVETIRACETAM 500 MG TABLET PO SCH ×2 (08:52→22:04)
[2021-02-03] MEDS: POTASSIUM CHLORIDE 20 MEQ PACKET PO SCH (08:52)
[2021-02-03] MEDS: DOCUSATE 100 MG CAPSULE PO SCH ×2 (08:52→22:04)
[2021-02-03] MEDS: ESCITALOPRAM 10MG TABLET PO SCH (08:52)
[2021-02-03 12:23] VITALS: BP 101/59
[2021-02-03 19:43] VITALS: BP 99/63
[2021-02-03] MEDS: LATANOPROST OPHTH 0.005%, 2.5ML EACHEYE SCH (22:03)
[2021-02-03] MEDS: ATORVASTATIN 20 MG TABLET PO SCH (22:04)
[2021-02-03] MEDS: HYDROcodone/APAP 5/325 TABLET PO PRN (23:13)
[2021-02-04 00:57] VITALS: BP 110/64
[2021-02-04] MEDS: HYDROcodone/APAP 5/325 TABLET PO PRN ×2 (04:48→09:12)
[2021-02-04 06:50] VITALS: BP 102/67
[2021-02-04] MEDS: MAGNESIUM CHLORIDE 64 MG TABLET.DR PO SCH ×2 (08:58→21:54)
[2021-02-04] MEDS: LEVETIRACETAM 500 MG TABLET PO SCH ×2 (08:58→21:54)
[2021-02-04] MEDS: ESCITALOPRAM 10MG TABLET PO SCH (08:58)
[2021-02-04] MEDS: PANTOPRAZOLE 40MG TABLET PO SCH ×2 (08:58→21:54)
[2021-02-04] MEDS: POTASSIUM CHLORIDE 20 MEQ PACKET PO SCH (08:58)
[2021-02-04] MEDS: DOCUSATE 100 MG CAPSULE PO SCH ×2 (08:59→21:00)
[2021-02-04 13:16] VITALS: BP 99/66
[2021-02-04 20:36] VITALS: BP 103/66
[2021-02-04] MEDS: LATANOPROST OPHTH 0.005%, 2.5ML EACHEYE SCH (21:54)
[2021-02-04] MEDS: ATORVASTATIN 20 MG TABLET PO SCH (21:54)
[2021-02-05 01:01] VITALS: BP 96/59
[2021-02-05 06:46] VITALS: BP 97/59
[2021-02-05] MEDS: DOCUSATE 100 MG CAPSULE PO SCH ×2 (07:26→21:10)
[2021-02-05] MEDS: POTASSIUM CHLORIDE 20 MEQ PACKET PO SCH (07:41)
[2021-02-05] MEDS: MAGNESIUM CHLORIDE 64 MG TABLET.DR PO SCH ×2 (07:41→21:10)
[2021-02-05] MEDS: ESCITALOPRAM 10MG TABLET PO SCH (07:41)
[2021-02-05] MEDS: LEVETIRACETAM 500 MG TABLET PO SCH ×2 (07:41→21:10)
[2021-02-05] MEDS: PANTOPRAZOLE 40MG TABLET PO SCH ×2 (07:41→21:10)
[2021-02-05 15:17] VITALS: BP 108/64
[2021-02-05] MEDS: HYDROcodone/APAP 5/325 TABLET PO PRN (15:23)
[2021-02-05] MEDS: LATANOPROST OPHTH 0.005%, 2.5ML EACHEYE SCH (21:10)
[2021-02-05] MEDS: ATORVASTATIN 20 MG TABLET PO SCH (21:10)
[2021-02-05 21:20] VITALS: BP 108/67
[2021-02-06 02:43] VITALS: BP 111/69
[2021-02-06] MEDS: HYDROcodone/APAP 5/325 TABLET PO PRN ×2 (04:20→12:34)
[2021-02-06 07:59] VITALS: BP 125/74
[2021-02-06] MEDS: POTASSIUM CHLORIDE 20 MEQ PACKET PO SCH (08:00)
[2021-02-06] MEDS: PANTOPRAZOLE 40MG TABLET PO SCH ×2 (09:00→20:13)
[2021-02-06] MEDS: LEVETIRACETAM 500 MG TABLET PO SCH ×2 (09:00→19:59)
[2021-02-06] MEDS: DOCUSATE 100 MG CAPSULE PO SCH ×2 (09:00→20:03)
[2021-02-06] MEDS: ESCITALOPRAM 10MG TABLET PO SCH (09:00)
[2021-02-06] MEDS: MAGNESIUM CHLORIDE 64 MG TABLET.DR PO SCH ×2 (09:00→20:13)
[2021-02-06 13:07] VITALS: BP 101/67
[2021-02-06 19:15] VITALS: BP 106/58
[2021-02-06] MEDS: LATANOPROST OPHTH 0.005%, 2.5ML EACHEYE SCH (20:03)
[2021-02-06] MEDS: ATORVASTATIN 20 MG TABLET PO SCH (20:09)
[2021-02-07 00:56] VITALS: BP 91/59
[2021-02-07] MEDS: PANTOPRAZOLE 40MG TABLET PO SCH (08:13)
[2021-02-07] MEDS: DOCUSATE 100 MG CAPSULE PO SCH (08:13)
[2021-02-07] MEDS: LEVETIRACETAM 500 MG TABLET PO SCH (08:13)
[2021-02-07] MEDS: POTASSIUM CHLORIDE 20 MEQ PACKET PO SCH (08:13)
[2021-02-07] MEDS: ESCITALOPRAM 10MG TABLET PO SCH (08:14)
[2021-02-07] MEDS: MAGNESIUM CHLORIDE 64 MG TABLET.DR PO SCH (08:14)
[2021-02-07 08:19] VITALS: BP 114/74
== END 2021-02-07 12:24 | disposition hospice, home (50) | DRG 25 ==
LOC: ORIP 05:29 → CCU 15:22 → 4WST 12-20 15:15 → 3N 12-28 11:40 → 5SO 12-30 20:06 → 4NW 12-31 17:59 → 5SO 01-13 17:29 → 4EST 01-14 18:16
PROVIDERS: ADMIT Neurological Surgery; ATTEND Family Medicine
PROC: 00U20KZ Supplement Dura Mater with Nonautologous Tissue Substitute, Open Approach (ICD-10-PCS; 2020-12-15)
PROC: 00B10ZZ Excision of Cerebral Meninges, Open Approach (ICD-10-PCS; principal; 2020-12-15 07:30)
PROC: 009400Z Drainage of Intracranial Subdural Space with Drainage Device, Open Approach (ICD-10-PCS; 2021-01-13)
PROC: 0NR Head and Facial Bones, Replacement (ICD-10-PCS; 2021-01-13)
PROC: 0T9B70Z Drainage of Bladder with Drainage Device, Via Natural or Artificial Opening (ICD-10-PCS; 2021-01-24)
DX: D32.9 Benign neoplasm of meninges, unspecified (principal); I60.9 Nontraumatic subarachnoid hemorrhage, unspecified; I61.1 Nontraumatic intracerebral hemorrhage in hemisphere, cortical; U07.1 COVID-19; G40.101 Localization-related (focal) (partial) symptomatic epilepsy and epileptic syndromes with simple partial seizures, not intractable, with status epilepticus; E44.1 Mild protein-calorie malnutrition; E87.0 Hyperosmolality and hypernatremia; G81.91 Hemiplegia, unspecified affecting right dominant side; J98.11 Atelectasis; N12 Tubulo-interstitial nephritis, not specified as acute or chronic; R47.01 Aphasia; Z16.12 Extended spectrum beta lactamase (ESBL) resistance; T81.40XA Infection following a procedure, unspecified, initial encounter; B96.20 Unspecified Escherichia coli [E. coli] as the cause of diseases classified elsewhere; D32.0 Benign neoplasm of cerebral meninges; D64.9 Anemia, unspecified; Z68.28 Body mass index [BMI] 28.0-28.9, adult; E78.5 Hyperlipidemia, unspecified; E87.6 Hypokalemia; F32.9 Major depressive disorder, single episode, unspecified; G93.89 Other specified disorders of brain; H40.9 Unspecified glaucoma; K64.4 Residual hemorrhoidal skin tags; R13.10 Dysphagia, unspecified; Z90.710 Acquired absence of both cervix and uterus; Z91.19 Patient's noncompliance with other medical treatment and regimen; Z90.49 Acquired absence of other specified parts of digestive tract; Z51.5 Encounter for palliative care; Z78.9 Other specified health status; Y83.8 Other surgical procedures as the cause of abnormal reaction of the patient, or of later complication, without mention of misadventure at the time of the procedure; Y92.238 Other place in hospital as the place of occurrence of the external cause; K76.0 Fatty (change of) liver, not elsewhere classified; K52.9 Noninfective gastroenteritis and colitis, unspecified
CPT/HCPCS: 36415; 74018; 74230; 87106; J3490; S0020; 70450; 70460; 70553; 71045; 74177; 76700; 76770; 80048; 80053; 80076; 81001; 82140; 82565; 82962; 83605; 83690; 83735; 83930; 84100; 84146; 85014; 85018; 85025; 86704; 86706; 86708; 86803; 86850; 86900; 87040; 87070; 87075; 87077; 87081; 87086; 87184; 87186; 87205; 87324; 87340; 87635; 88304; 88305; 88307; 88311; 88331; 88341; 88342; 93005; 95816; 95819; C1713; G0378; J0171; J0690; J0696; J0697; J0744; J1100; J1335; J1650; J1953; J2250; J2405; J2704; J2710; J3010; J3370; J3480; Q9967; 92523-GN; A4648; A9575; C1781; C9113; J0330; J2270; J7030; J7040; J7120; Q2009